=== PATIENT | female | born 1995 | race Hispanic/Latino ===

== ENCOUNTER 2017-09-15 15:41 | Inpatient (IN) | payer BC ==
[2017-09-15] MEDS ORDERED: Iopamidol 370 76% 50 ML VIAL FS ONE (16:02)
[2017-09-15] MEDS ORDERED: ISOVUE-370 76%-LOCM 1 ML ONE (16:03)
[2017-09-15 16:05] LABS: #Lymphocytes 1.1 thou/uL (1.20-3.40); #Monocytes 0.7 thou/uL (0.11-0.59); #Neutrophils 11.6 thou/uL (1.40-6.50); %Basophils 0.2 % (0.0-1.0); %Eosinophils 0.1 % (0.0-10.0); %Lymphocytes 8.2 % (21.0-51.0); %Monocytes 4.9 % (0.0-10.0); Hematocrit 39.7 % (36.0-47.0); Mean Platelet Volume 8.3 fL (7.4-10.4); Red Blood Cell (RBC) Count 4.43 mill/uL (4.20-5.40); White Blood Cell (WBC) Count 13.4 thou/uL (4.8-10.8)
[2017-09-15 16:26] LABS: ALT (SGPT) 63 U/L (8-55); AST (SGOT) 57 U/L (5-34); Alkaline Phosphatase 86 U/L (40-150); Anion Gap 20 mmol/L (10-20); BUN (Urea Nitrogen) 6 mg/dL (7.0-18.7); Bilirubin, Total 0.9 mg/dL (0.2-1.2); Calc. Creatinine Clearance 0 mL/min (70-130); Calcium 9.4 mg/dL (7.8-10.44); Carbon Dioxide 18 mmol/L (22-29); Chloride 100 mmol/L (98-107); Estimated GFR-MDRD Greater than 90; Globulin 4.8 g/dL (2.4-3.5); Protein, Total 8.7 g/dL (6.0-8.3)
[2017-09-15 16:41] LABS: Bilirubin Moderate (Negative); Blood, Urine Large (Negative); Glucose, Urine (Dipstick) Negative (Negative); Ketone, Urine 80 mg/dL (Negative); Nitrite Negative (Negative); Protein, Urine (Dipstick) 100 mg/dL (Neg-Trace)
[2017-09-15 16:45] LABS: Bacteria/HPF 1+ HPF (None Seen); Hyaline Casts/LPF 4-6 HYALINE CAST LPF (0-3 Hyaline); RBC/HPF GREATER THAN 50-TNTC HPF (0-3); WBC/HPF 21-50 HPF (0-3)
[2017-09-15] MEDS ORDERED: Acetaminophen 500 MG TAB ONE (16:45)
--- NOTE | 2017-09-15 17:39 | CT ---
CT OF THE ABDOMEN AND PELVIS WITH IV CONTRAST: 09/15/17 INDICATION: History of gastric sleeve procedure with abdominal pain. FINDINGS: There is fluid and gas seen traversing the proximal gastric sleeve suture site on image 16 of series 2 suspicious for suture dehiscence along this region. There is fluid and gas surrounding the spleen . There is a grade III laceration involving the superior aspect of the spleen measuring 4.5 cm witho ut evidence of active extravasation. Scattered free air is present within the upper abdomen. Slight lobulated appearance of the pancreatic tail is similar to a comparison in 2008. There is focal fatty infiltration of the liver near the falciform ligament which is similar to the comparison of 07/05/17 . The adrenal glands and kidneys are normal appearing. There is no percutaneously drainable fluid co llection noted. There is mild free fluid in the pelvis. The uterus, adnexa, rectum, and perirectal s oft tissues appear within normal limits. The bladder is largely decompressed. The osseous structures reveal no definite acute abnormality. IMPRESSION: 1. Findings most consistent with surgical suture line dehiscence along the proximal aspect of t he gastric sleeve site, near the region of the cardia. 2. Grade III laceration involving the superior pole of the spleen with adjacent fluid and gas a ccumulation likely from the gastric sleeve perforation site. 3. Scattered free air and free fluid within the upper abdomen. 4. Focal fatty infiltration of the liver. 5. Findings called to Dr. Trinidad 5:20 p.m. on 09/15/17. Code CR POS: [facility]
[2017-09-15] MEDS ORDERED: Ondansetron HCl/PF 8 MG in Sodium Chloride 0.9% 50 ML IVPB PRN (18:13)
[2017-09-15] MEDS ORDERED: Promethazine HCl 25 MG/ML VIAL IM/IV PRN (18:13)
[2017-09-15] MEDS ORDERED: Morphine 4 MG/ML Carpuject SLOW IVP PRN (18:13)
[2017-09-15] MEDS ORDERED: Sodium Chloride 0.9% 1,000 ML IV SCH (18:15)
[2017-09-15] MEDS ORDERED: Meropenem 1 GM, Admixture Fee 1 EACH in Sterile Water 20 ML SLOW IVP SCH (18:30)
[2017-09-15] MEDS ORDERED: Multivit, Adult Inj 10 ML VIAL IV SCH (18:30)
[2017-09-15] MEDS ORDERED: Multivitamins, Adult 10 ML in Sodium Chloride 0.9% 500 ML IV SCH ×2 (18:45)
[2017-09-15] MEDS ORDERED: Morphine 10 MG/ML VIAL SLOW IVP PRN ×3 (19:50→21:57)
[2017-09-15] MEDS: D5 1/2 NS w/20 mEq KCL 1,000 ML IV SCH (20:04)
[2017-09-15 20:28] VITALS: BMI 35.9
[2017-09-15] MEDS: Pantoprazole 40 MG VIAL IVP SCH (21:22)
[2017-09-15] MEDS: Morphine 10 MG/ML VIAL SLOW IVP PRN (22:05)
[2017-09-15] MEDS: Acetaminophen 1,000 MG in Premix Bag 1 BAG IVPB PRN (22:06)
--- NOTE | 2017-09-15 22:42 | HP ---
CHIEF COMPLAINT: Left upper quadrant, abdominal pain, and shoulder pain. HISTORY OF PRESENT ILLNESS: A 22-year-old female who underwent a sleeve gastrectomy on 07/01. She says she was doing fine until yesterday when she first developed a headache, then acute left shoulde r pain and dyspnea, no vomiting, some nausea. She has had reflux. She also reported that she began drinking alcohol again. PAST MEDICAL HISTORY: Significant for polycystic ovary and a history of diabetes. PAST SURGICAL HISTORY: Sleeve gastrectomy. MEDICATIONS: Vyvanse. ALLERGIES: No known drug allergies. SOCIAL HISTORY: She is single. No tobacco, occasional alcohol. FAMILY HISTORY: Noncontributory. PHYSICAL EXAMINATION: VITAL SIGNS: Temperature 99.9, pulse 102, blood pressure 125/82. GENERAL: She is awake, lying still, in minimal distress. HEENT: Unremarkable. LUNGS: Clear. HEART: Regular rate and rhythm. ABDOMEN: Tender in the epigastrium and left upper quadrant. There are rare bowel sounds. EXTREMITIES: Unremarkable. LABORATORY AND X-RAY FINDINGS: Her white count is 13.4, H\T\H 13 and 39, platelet count 228. Elect rolytes are fine, but her CO2 is low at 18, glucose is 117, creatinine 0.69. She had a CT scan show ing a very minimal fluid collection with some small amounts of free air in the left upper quadrant c onsistent with a staple line disruption. ASSESSMENT: Staple line leak. PLAN: Admit, IV antibiotics, proton pump inhibitors, n.p.o.
[2017-09-16] MEDS: Morphine 10 MG/ML VIAL SLOW IVP PRN ×2 (01:59→04:23)
[2017-09-16] MEDS: Meropenem 2 GM, Admixture Fee 1 EACH in Sodium Chloride 0.9% 100 ML IVPB SCH ×3 (01:59→18:07)
[2017-09-16] MEDS: Acetaminophen 1,000 MG in Premix Bag 1 BAG IVPB PRN (04:24)
[2017-09-16] MEDS: D5 1/2 NS w/20 mEq KCL 1,000 ML IV SCH ×3 (07:41→18:45)
[2017-09-16] MEDS ORDERED: Midazolam HCl 2 mg/2 ml Vial ONE ×2 (09:04)
[2017-09-16] MEDS ORDERED: Scopolamine 1.5 mg/72 hour Patch ONE (09:04)
[2017-09-16] MEDS ORDERED: Fentanyl 100 MCG/2 ML VIAL ONE (09:04)
[2017-09-16] MEDS ORDERED: Morphine 4 MG/ML Carpuject ONE (09:04)
[2017-09-16] MEDS ORDERED: Bupivacaine 0.25% HCL 30 ML VIAL ONE (09:07)
[2017-09-16] MEDS ORDERED: Lidocaine 1% w/Epinephrine 1:200K 30 ML VIAL ONE (09:07)
[2017-09-16] MEDS ORDERED: Glycopyrrolate 0.2 MG/ML 5 ML SYRINGE ONE (09:30)
[2017-09-16] MEDS ORDERED: Dexamethasone 20 MG/5 ML VIAL ONE (09:30)
[2017-09-16] MEDS ORDERED: Lidocaine 1% PF 5 ML VIAL ONE (09:30)
[2017-09-16] MEDS ORDERED: Ketorolac Tromethamine 30 MG/ML VIAL ONE (09:30)
[2017-09-16] MEDS ORDERED: Ondansetron HCl/PF 4 MG/2 ML Vial ONE (09:30)
[2017-09-16] MEDS ORDERED: Propofol 200 MG/20 ML VIAL ONE (09:30)
[2017-09-16] MEDS ORDERED: Promethazine HCl 25 MG/ML VIAL SLOW IVP PRN (10:33)
[2017-09-16] MEDS ORDERED: Promethazine HCl 25 MG/ML VIAL IM PRN ×3 (10:33→10:48)
[2017-09-16] MEDS ORDERED: Naloxone HCl 0.4 mg/ml Vial IV PRN (10:33)
[2017-09-16] MEDS ORDERED: HYDROmorphone 2 MG/ML VIAL SLOW IVP PRN (10:33)
[2017-09-16] MEDS ORDERED: Zolpidem Tartrate 5 MG TAB PO PRN (10:33)
[2017-09-16] MEDS ORDERED: diphenhydrAMINE 50 MG/ML VIAL IM PRN (10:33)
[2017-09-16] MEDS ORDERED: Ondansetron HCl/PF 4 MG/2 ML Vial IVP PRN ×3 (10:33→10:48)
[2017-09-16] MEDS ORDERED: diphenhydrAMINE 25 MG CAP PO PRN (10:33)
[2017-09-16] MEDS ORDERED: HYDROmorphone 10 mg/100 ml CADD IVPB PRN (10:33)
[2017-09-16] MEDS ORDERED: Communication Order-Pharmacy FS SCH (10:45)
[2017-09-16] MEDS ORDERED: diphenhydrAMINE 50 MG/ML VIAL IVP PRN (10:48)
[2017-09-16] MEDS ORDERED: Dextrose 5% in Water 1,000 ML IV PRN (10:48)
[2017-09-16] MEDS ORDERED: hydrALAZINE 20 MG/ML VIAL SLOW IVP PRN (10:48)
[2017-09-16] MEDS ORDERED: Dextrose 50% Abboject 50 ML SYRINGE SLOW IVP PRN (10:48)
[2017-09-16] MEDS ORDERED: D5 1/2 NS w/20 mEq KCL 1,000 ML ONE (11:11)
[2017-09-16] MEDS ORDERED: Ketorolac Tromethamine 30 MG/ML VIAL IVP SCH (12:00)
[2017-09-16] MEDS ORDERED: Acetaminophen 1,000 MG in Premix Bag 1 BAG IVPB SCH (12:00)
[2017-09-16] MEDS ORDERED: HYDROmorphone HCl/PF 0.1 MG/ML 100 ML ONE (12:10)
--- NOTE | 2017-09-16 13:14 | OP ---
PREOPERATIVE DIAGNOSIS: Left upper quadrant abscess with possible gastric perforation. SURGEON: Eric Tena M.D. PROCEDURES PERFORMED: Diagnostic laparoscopy, laparoscopic drainage of left upper quadrant, perispl enic abscess, EGD with methylene blue. INDICATIONS: Patient is a 22-year-old female 3 months status post sleeve, who yesterday started hav ing left upper quadrant abdominal pain and shoulder pain. She came to the emergency room where a CT scan showed an abscess in the left upper quadrant with some air pockets that they thought was leak from previous staple line. FINDINGS: I could not demonstrate a leak. I used air insufflation as well as methylene blue. She did have an abscess cavity of about 50 mL of purulent fluid that was drained, but there was no color change to it from the methylene blue. This was sent for culture. PROCEDURE IN DETAIL: After informed consent was obtained, the patient was taken to the operating ro om and given general endotracheal anesthesia, placed in the supine position. Her abdomen was preppe d and draped in the usual fashion. Local anesthesia infiltrated subcutaneously and deep. A 5 mm in cision was performed approximately 8 inches below the xiphoid slightly to the left. Veress needle i nserted. Drop test performed. Pneumoperitoneum was created to a volume of 2 liters of carbon dioxi de. Utilizing a bladeless 5 mm trocar and 0 degree laparoscope, direct visual entry into the abdomi nal cavity was performed. The patient was placed in steep reverse Trendelenburg position. Nathanse n liver retractor inserted. Left lobe of liver retracted superiorly. There were minimal adhesions in the area. There was no obvious purulent fluid, so just up there at the EG junction, there was mo re inflammation and another placed, so gently blunt dissection was performed and there was a little bit of free fluid. This was sent for culture. Then eventually so at this point, I went ahead and d id an EGD. The scope was advanced transorally utilizing direct vision and under air insufflation in to the stomach and then brought back right at the EG junction and then inflated. There were no bubb les anywhere seen. Then, I took 50 mL or 45 mL of fluid and 5 mL of methylene blue and inserted thr ough the channel on the scope right at the EG junction, then went back down and I did not see any bl ue color extravasated. So when I started to put a drain in and I was leaving it along the left gutt er when I started seeing purulent fluid. This was then aspirated for culture and an abscess cavity was encountered just lateral to the spleen. There was absolutely no methylene blue within it. This was thoroughly irrigated with saline. The drain placed along that gutter and placed into the absce ss cavity, brought out through the left-sided port site. Hemostasis was assured. Trocars and retra ctors removed. The abdomen decompressed. The skin closed with interrupted 4-0 Rapide. Dermabond a pplied. The patient tolerated the procedure well and transferred to recovery in good condition.
[2017-09-16] MEDS: Pantoprazole 40 MG VIAL IVP SCH (13:34)
[2017-09-16] MEDS: diphenhydrAMINE 50 MG/ML VIAL IVP PRN ×3 (16:58→23:52)
[2017-09-16] MEDS: Acetaminophen 1,000 MG in Premix Bag 1 BAG IVPB SCH ×2 (17:01→21:30)
[2017-09-16] MEDS: Ketorolac Tromethamine 30 MG/ML VIAL IVP SCH (18:47)
[2017-09-16] MEDS ORDERED: Docusate 100 MG CAP PO SCH (21:00)
[2017-09-17] MEDS: Meropenem 2 GM, Admixture Fee 1 EACH in Sodium Chloride 0.9% 100 ML IVPB SCH ×3 (02:41→18:54)
[2017-09-17] MEDS: D5 1/2 NS w/20 mEq KCL 1,000 ML IV SCH ×3 (02:43→17:53)
[2017-09-17] MEDS: Acetaminophen 1,000 MG in Premix Bag 1 BAG IVPB SCH ×3 (03:53→17:24)
[2017-09-17 04:40] LABS: #Lymphocytes 1.7 thou/uL (1.20-3.40); #Monocytes 1.1 thou/uL (0.11-0.59); #Neutrophils 9.9 thou/uL (1.40-6.50); %Basophils 0.1 % (0.0-1.0); %Eosinophils 0.2 % (0.0-10.0); %Lymphocytes 13.5 % (21.0-51.0); %Monocytes 8.5 % (0.0-10.0); Hematocrit 34.6 % (36.0-47.0); Mean Platelet Volume 8.4 fL (7.4-10.4); Red Blood Cell (RBC) Count 3.77 mill/uL (4.20-5.40); White Blood Cell (WBC) Count 12.7 thou/uL (4.8-10.8)
[2017-09-17 04:53] LABS: Anion Gap 13 mmol/L (10-20); BUN (Urea Nitrogen) 6 mg/dL (7.0-18.7); Calc. Creatinine Clearance 244 mL/min (70-130); Calcium 8.4 mg/dL (7.8-10.44); Carbon Dioxide 21 mmol/L (22-29); Chloride 106 mmol/L (98-107); Estimated GFR-MDRD Greater than 90
[2017-09-17] MEDS: Ketorolac Tromethamine 30 MG/ML VIAL IVP SCH ×4 (06:10→18:54)
[2017-09-17] MEDS: diphenhydrAMINE 50 MG/ML VIAL IVP PRN ×4 (06:14→22:30)
[2017-09-17] MEDS: Enoxaparin Sodium 40 MG/0.4 ML SYRINGE SC SCH (09:12)
[2017-09-17] MEDS: Pantoprazole 40 MG VIAL IVP SCH (09:12)
--- NOTE | 2017-09-17 11:09 | RAD ---
LIMITED UPPER GI: 09/17/2017 FLUOROSCOPY: Total fluoroscopy time is 0.7 minutes with a total dose of 19.83 Gy cm2. HISTORY: Post bariatric surgery, gastric sleeve procedure. The patient had a left upper quadrant abdominal f luid collection and subsequent CT scan demonstrating gas adjacent to the post surgical changes, sugg esting the possibility of a leak. This examination is for re-evaluation of post surgical change. FINDINGS: Approximately 15 mL of Gastrografin was administered orally. Contrast traverses the GE junction sharmila ailyn and without holdup and extends promptly into the small bowel. However, there is a focal area of extravasation seen near and probably just distal to the level of the GE junction and to the left of this region and into the left upper quadrant. Contrast does extend into the small bowel. Multiple surgical clips overly the left upper quadrant, and there is also a drainage catheter overly ing the left upper quadrant. IMPRESSION: 1. Post surgical changes related to gastric sleeve procedure. There is evidence of extravasation o f contrast secondary to a leak, to the left of the gastroesophageal junction, and is probably either in the region of the proximal stomach or at the level of the gastroesophageal junction. 2. Contrast traverses the gastroesophageal junction and extends into the small bowel, promptly. 3. The above findings, concerning leak, were discussed with Dr. Tena. CODE CR POS: [facility]
[2017-09-17] MEDS ORDERED: Heparin 1,000 UNITS/ML VIAL ONE (11:11)
--- NOTE | 2017-09-17 11:49 | DIS ---
DISCHARGE DIAGNOSIS: Intra-abdominal abscess left upper quadrant, gastric staple line leak. PROCEDURES DURING ADMISSION: CT scan laparoscopic drainage of abdominal abscess, EGD, postoperative Gastrografin swallow. HOSPITAL COURSE: The patient was admitted. CT scan showed an abscess. She was given IV antibiotic s. She was taken to the operating room where she underwent laparoscopic drainage of the abscess, in traoperatively could not demonstrate a leak; however, on the postoperative Gastrografin swallow, the re was a leak. She is now being transferred to [facility] in [place] with Dr. Bianca bailey in order to place a stent to block this leak. She will be transferred by ambulance.
--- NOTE | 2017-09-17 16:04 | EKG ---
Test Reason : TACHYCARDIA Blood Pressure : / mmHG Vent. Rate : 114 BPM Atrial Rate : 114 BPM P-R Int : 134 ms QRS Dur : 074 ms QT Int : 290 ms P-R-T Axes : 040 030 029 degrees QTc Int : 399 ms Sinus tachycardia Otherwise normal ECG When compared with ECG of 21-JUN-2017 17:24, No significant change was found Confirmed by DR. Palak CELAYA ([id number]) on 09/17/2017 4:03:52 PM Referred By: SHASHANK Confirmed By:DR. Palak CELAYA
--- NOTE | 2017-09-17 18:16 | SPC ---
ULTRASOUND GUIDED LEFT UPPER EXTREMITY PICC LINE PLACEMENT 09/17/17 HISTORY: Patient post gastric sleeve procedure with gastric leak and infection. FLUOROSCOPY: Total fluoroscopy time 0.3 minutes. Total dose of 2364 mGy*cm2. TECHNIQUE: After informed consent was obtained, the patient was placed on an angiography table in the supine po sition. Left upper extremity was meticulously prepped and draped in the usual sterile fashion. An ap propriate access site was determined with ultrasound guidance. The left basilic vein is accessed utilizing micropuncture technique and concurrent real time ultraso und guidance. 5 Lebanese peel away sheath was placed. The catheter was measured and cut to the appropr iate length. Catheter was placed over the guide wire with the tip positioned overlying the cavoatria l junction. Guide wire and peel away sheath were removed. Each port on the double lumen PICC line was accessed and aspirated/flushed easily. The catheter was secured to the skin utilizing StatLock device. A dry sterile dressing was placed. The patient tolerated the procedure well without immediate complication. FINDINGS: Technically successful placement of a single lumen 5 Lebanese 40 cm PICC line via the left basilic vei n. Tip of the catheter overlies the cavoatrial junction. IMPRESSION: Technically successful left upper extremity PICC line placement. POS: [facility]
[2017-09-18] MEDS: Meropenem 2 GM, Admixture Fee 1 EACH in Sodium Chloride 0.9% 100 ML IVPB SCH ×3 (01:16→18:21)
[2017-09-18] MEDS: D5 1/2 NS w/20 mEq KCL 1,000 ML IV SCH ×3 (01:16→21:30)
[2017-09-18] MEDS: Ketorolac Tromethamine 30 MG/ML VIAL IVP SCH ×4 (01:17→18:22)
[2017-09-18] MEDS: Enoxaparin Sodium 40 MG/0.4 ML SYRINGE SC SCH (09:40)
[2017-09-18] MEDS: Pantoprazole 40 MG VIAL IVP SCH (09:40)
[2017-09-18] MEDS: diphenhydrAMINE 50 MG/ML VIAL IVP PRN ×2 (14:58→21:29)
[2017-09-18] MEDS ORDERED: MULTITRACE IV SCH ×10 (22:00)
[2017-09-18] MEDS ORDERED: MULTIVITAMINS IV SCH ×10 (22:00)
[2017-09-18] MEDS ORDERED: [UNRECOGNIZED DRUG - OTHER] IV SCH ×10 (22:00)
[2017-09-18] MEDS ORDERED: FAT EMULSION IV SCH ×10 (22:00)
[2017-09-19] MEDS: Meropenem 2 GM, Admixture Fee 1 EACH in Sodium Chloride 0.9% 100 ML IVPB SCH ×2 (02:48→08:30)
[2017-09-19] MEDS: diphenhydrAMINE 50 MG/ML VIAL IVP PRN ×2 (02:49→10:56)
[2017-09-19] MEDS: D5 1/2 NS w/20 mEq KCL 1,000 ML IV SCH ×2 (02:49→10:59)
[2017-09-19 04:36] LABS: Prothrombin Time 14.5 SEC (12.0-14.7)
[2017-09-19 04:41] LABS: ALT (SGPT) 52 U/L (8-55); AST (SGOT) 30 U/L (5-34); Alkaline Phosphatase 139 U/L (40-150); Anion Gap 12 mmol/L (10-20); BUN (Urea Nitrogen) Less than 4 mg/dL (7.0-18.7); Bilirubin, Total 0.5 mg/dL (0.2-1.2); Calc. Creatinine Clearance 239 mL/min (70-130); Calcium 8.9 mg/dL (7.8-10.44); Carbon Dioxide 26 mmol/L (22-29); Chloride 105 mmol/L (98-107); Cholesterol 90 mg/dl (< 200 Desired); Estimated GFR-MDRD Greater than 90; Globulin 3.6 g/dL (2.4-3.5); LDL Cholesterol, Calculated 47 mg/dL; Magnesium 1.7 mg/dL (1.6-2.6); Phosphorus 2.8 mg/dL (2.3-4.7); Protein, Total 6.6 g/dL (6.0-8.3)
[2017-09-19] MEDS: Pantoprazole 40 MG VIAL IVP SCH (08:26)
[2017-09-19] MEDS: Enoxaparin Sodium 40 MG/0.4 ML SYRINGE SC SCH (08:27)
[2017-09-19 12:13] VITALS: BP 117/81; TEMP 99.6
[2017-09-19] MEDS ORDERED: Morphine PF 1 MG/ML SYR IV PRN (12:21)
[2017-09-19] MEDS ORDERED: MORPHINE 10 MG/ML SYRINGE IV PRN (12:22)
== END 2017-09-19 15:31 | disposition short-term general hospital (02) | DRG 862 ==
LOC: ERS 15:41 → SURG A 19:40
PROVIDERS: ADMIT Surgery; ATTEND Surgery
PROC: 0DJ08ZZ Inspection of Upper Intestinal Tract, Via Natural or Artificial Opening Endoscopic (ICD-10-PCS; principal; 2017-09-16)
PROC: 0W9G40Z Drainage of Peritoneal Cavity with Drainage Device, Percutaneous Endoscopic Approach (ICD-10-PCS; 2017-09-16)
PROC: 02HV33Z Insertion of Infusion Device into Superior Vena Cava, Percutaneous Approach (ICD-10-PCS; 2017-09-17)
PROC: B548ZZA Ultrasonography of Superior Vena Cava, Guidance (ICD-10-PCS; 2017-09-17)
DX: T81.4XXA Infection following a procedure, initial encounter (principal); K65.1 Peritoneal abscess; K95.89 Other complications of other bariatric procedure; E11.9 Type 2 diabetes mellitus without complications; Z98.84 Bariatric surgery status; E28.2 Polycystic ovarian syndrome
CPT/HCPCS: 36415; 36416; 36569; 74177; 74241; 80048; 80053; 80061; 81003; 81015; 81025; 83735; 84100; 84134; 85025; 85610; 85730; 87040; 87070; 87077; 87116; 87205; 87206; 93005; 93010; 94760; 96361; 96374; 96375; A4216; C1751; C9113; J0131; J1100; J1170; J1200; J1644; J1650; J1885; J2001; J2185; J2250; J2270; J2405; J2704; J3010; J7050; Q9968; S0020

== ENCOUNTER 2017-09-27 12:42 | Inpatient (IN) | payer BC ==
--- OUTSIDE RECORDS SUMMARY | 2017-09-27 19:16 | XMS | Clinical Summary ---
:1995 Author Organization [facility] Address [address] [place] [address] Phone Care Team Providers Name Role Phone , Primary Care Provider Unavailable Allergies Active Allergy Reactions Severity Noted Date Comments Sulfa (Sulfonamide Antibiotics) Hives 09/19/20172015 Current Medications Prescription Sig. Disp. Refills Start End Date Status Date Continue current Per Parenteral 1 each 0 Active parenteral nutrition 7 nutrition IV formulation. infusion ampicillin-sulbac Inject 3 g 0 Active barth (UNASYN) MBP intravenously 7 3 g in 100 mL NS every 6 (six) hours. bisacodyl Place 1 12 suppository 0 10/07/20 Active (DULCOLAX) 10 mg suppository (10 mg 7 17 suppository total) rectally daily as needed for up to 10 days. dextrose 10% USE PRN. Active (D10W) infusion 7 enoxaparin Inject 0.4 mLs (40 0 Active (LOVENOX) 40 mg total) 7 mg/0.4 mL Syrg subcutaneously daily. HYDROmorphone Inject 1 mL (1 mg 1 mL 0 Active (DILAUDID) total) 7 injection 1 mg/mL intravenously every 4 (four) hours as needed. Max Daily Amount: 6 mg ondansetron Inject 2 mLs (4 mg Active (ZOFRAN) 4 mg/2 total) 7 mL injection intravenously every 6 (six) hours as needed. pantoprazole Inject 40 mg Active (PROTONIX) intravenously 7 injection 40 mg daily. promethazine Inject 1 mL (25 mg Active (PHENERGAN) 25 total) 7 mg/mL injection intravenously every 6 (six) hours as needed. sodium chloride Inject 5 mLs Active 0.9%, NS, 0.9 % intravenously as 7 injection needed. sodium chloride Inject 5 mLs Active 0.9%, NS, 0.9 % intravenously 7 injection every 8 (eight) hours. sodium chloride Inject 5 mLs Active 0.9%, NS, 0.9 % intravenously as 7 injection needed. sodium chloride Inject 5 mLs Active 0.9%, NS, 0.9 % intravenously 7 injection every 8 (eight) hours. pediatric Take 1 tablet by 09/27/20 Suspended multivitamin mouth 2 (two) 17 chewable times daily tabletIndications Bariatric :Vitamin multivitamin, Deficiency chewable. . Prevention CALCIUM Take 1,000 mg by 09/27/20 Suspended CARB/VITAMIN mouth daily 17 D3/VIT K1 Caltrate, caramel (CALCIUM SOFT calcium chewables. CHEW ORAL) . Active Problems Problem Noted Date Mild protein-calorie malnutrition (HCC) 09/27/2017 Abdominal abscess (HCC) 09/27/2017 Gastric anastomotic leak 09/19/2017 Encounters Date Type Specialty Care Team Description 09/21/2017 Orders Only General Internal Medicine 09/20/2017 Anesthesia Event Gastroenterology Moises Davila CRNA 09/20/2017 Procedure Pass Gastroenterology 09/20/2017 Surgery Gastroenterology Bianca Guzman PROCEDURE W/ C-JOSE Gibbs MD 09/19/2017 - Hospital Encounter Cardiology Maldonado Still Gastric 09/27/2017 MD [place] anastomotic leak Ethel Verdugo MD Giveon, Ron, MD from Last 3 Months Family History Medical History Relation Name Comments Diabetes Maternal Grandfather Hypertension Maternal Grandfather Relation Name Status Comments Maternal Grandfather Social History Tobacco Use Types Packs/Day Years Used Date Never Smoker Smokeless Tobacco: Never Used Tobacco Cessation:Counseling Given: No Alcohol Use Drinks/Week oz/Week Comments Yes 1 Glasses of wine 0.6 less than one per week. Sex Assigned at Date Recorded Not on file Last Filed Vital Signs Vital Sign Reading Time Taken Blood Pressure 125/84 09/27/2017 7:00 AM CREDIT REPORTING CLERK Pulse 98 09/27/2017 3:56 PM CREDIT REPORTING CLERK Temperature 36.6 C (97.8 F) 09/27/2017 7:00 AM CREDIT REPORTING CLERK Respiratory Rate 18 09/27/2017 3:56 PM CREDIT REPORTING CLERK Oxygen Saturation 96% 09/27/2017 3:56 PM CREDIT REPORTING CLERK Inhaled Oxygen Concentration - - Weight 89 kg (196 lb 4.8 oz) 09/27/2017 8:00 AM CREDIT REPORTING CLERK Height 160 cm (5' 3") 09/19/2017 5:44 PM CREDIT REPORTING CLERK Body Mass Index 34.77 09/27/2017 8:00 AM CREDIT REPORTING CLERK Plan of Treatment Health Maintenance Due Date Last Done Comments INFLUENZA VACCINE 08/15/2017 Implants Implanted Type Area Structural Metal Fabricator Apprentice Device Expiration Model / Identifier Date Serial / Lot Stent Esoph Wallfelx [id number] - [id number] Stents-P N/A: [employer]: ENDO 02/10/2019 1675 / Implanted:Qty: 1 on 09/20/2017 by Bianca Guzman MD eriphera Esophagus / l [id number] Procedures Procedure Name Priority Date/Time Associated Diagnosis Comments UPPER ENDOSCOPY,WALL 09/20/2017 5:10 PM CREDIT REPORTING CLERK ESOPHAGEAL LEAK STENT Special Needs EGD WITH STENT PLACEMENT WITH ANES AND FLUORO PROCEDURE W/ C-ARM 09/20/2017 5:10 PM CREDIT REPORTING CLERK ESOPHAGEAL LEAK Special Needs EGD WITH STENT PLACEMENT WITH ANES AND FLUORO from Last [address] abdomen with IV contrast (09/27/2017 12:59 PM) Specimen Performing Laboratory GE RIS Narrative FINAL REPORT HISTORY : Pt with GE junction leak/perisplenic abscess - wish to evaluate resolution of abscess. Please give oral contrast Technique: Multiple axial CT images of the abdomen were obtained with the administration of IV and oral contrast. This exam was performed according to our departmental dose optimization program which includes automated exposure control, adjustment of the mA and/or kV according to patient size and/or use of iterative reconstructive technique. COMPARISON : None COMMENT : There is a small left-sided pleural effusion with some adjacent consolidation likely representing atelectasis. An esophageal stent is in place. There is a linear collection of air identified lateral to the stent at the level of the gastroesophageal junction with additional foci of air in the left perisplenic region. There are several fluid and air fluid collections identified in the perisplenic region. The largest measures up to 3.7 x 2.3 cm. Some of air/fluid collections are seen within the splenic parenchyma and appear to be communicating with the air tract. The gallbladder is contracted. There is suspected cholelithiasis. The findings can be confirmed with an MRI, liver mass protocol. The visualized spleen, adrenal glands, kidneys, pancreas, stomach and duodenum are within normal limits. Within the left hepatic lobe, along the falciform ligament, there is a hypodense area identified measuring up to 2.4 x 0.9 cm. More likely, this represents some focal fatty infiltration around the gallbladder. There is no abdominal or retroperitoneal lymphadenopathy. The osseous structures as well as the subcutaneous soft tissues are without any abnormalities. No findings of any bowel obstruction. The visualized portions of the large and small bowel are within normal limits. The visualized portions of the appendix are within normal limits. Impression: 1. Esophageal stent in place. There is a linear air-filled tract extending left lateral to the gastroesophageal junction outside the confines of the stent. This may be secondary to an esophageal leak. 2. Several splenic/perisplenic fluid and air fluid collections concerning for abscesses. There is questionable communicating tract between some of these collections and the previously described tract along the gastroesophageal junction. Signed: Kevin Aguirre MD Report Verified Date/Time:09/27/2017 15:08:11 Reading Location: [facility] C013Y CT Body Reading Room Procedure Note Interface, External Ris In - 09/27/2017 3:10 PM CREDIT REPORTING CLERK FINAL REPORT HISTORY : Pt with GE junction leak/perisplenic abscess - wish to evaluate resolution of abscess. Please give oral contrast Technique: Multiple axial CT images of the abdomen were obtained with the administration of IV and oral contrast. This exam was performed according to our departmental dose optimization program which includes automated exposure control, adjustment of the mA and/or kV according to patient size and/or use of iterative reconstructive technique. COMPARISON : None COMMENT : There is a small left-sided pleural effusion with some adjacent consolidation likely representing atelectasis. An esophageal stent is in place. There is a linear collection of air identified lateral to the stent at the level of the gastroesophageal junction with additional foci of air in the left perisplenic region. There are several fluid and air fluid collections identified in the perisplenic region. The largest measures up to 3.7 x 2.3 cm. Some of air/fluid collections are seen within the splenic parenchyma and appear to be communicating with the air tract. The gallbladder is contracted. There is suspected cholelithiasis. The findings can be confirmed with an MRI, liver mass protocol. The visualized spleen, adrenal glands, kidneys, pancreas, stomach and duodenum are within normal limits. Within the left hepatic lobe, along the falciform ligament, there is a hypodense area identified measuring up to 2.4 x 0.9 cm. More likely, this represents some focal fatty infiltration around the gallbladder. There is no abdominal or retroperitoneal lymphadenopathy. The osseous structures as well as the subcutaneous soft tissues are without any abnormalities. No findings of any bowel obstruction. The visualized portions of the large and small bowel are within normal limits. The visualized portions of the appendix are within normal limits. Impression: 1. Esophageal stent in place. There is a linear air-filled tract extending left lateral to the gastroesophageal junction outside the confines of the stent. This may be secondary to an esophageal leak. 2. Several splenic/perisplenic fluid and air fluid collections concerning for abscesses. There is questionable communicating tract between some of these collections and the previously described tract along the gastroesophageal junction. Signed: Kevin Aguirre MD Report Verified Date/Time: 09/27/2017 15:08:11 Reading Location: [facility] C013Y CT Body Reading Room with platelet count + automated diff (09/27/2017 5:09 AM)Only the most recent of9 resultswithin the time period is included. Component Value Ref Range WBC 11.9(H) 3.5 - 10.5 K/L RBC 3.88(L) 3.93 - 5.22 M/L Hemoglobin 10.8(L) 11.2 - 15.7 GM/DL Hematocrit 34.1 34.1 - 44.9 % MCV 87.9 79.4 - 94.8 fL MCH 27.8 25.6 - 32.2 pg MCHC 31.7(L) 32.2 - 35.5 GM/DL RDW 14.6(H) 11.7 - 14.4 % Platelets 524(H) 150 - 450 K/CU MM MPV 9.3(L) 9.4 - 12.3 fL nRBC 0 0 - 0 /100 WBC % Neutros 68 % % Lymphs 22 % % Monos 9 % % Eos 1 % % Baso 0 % # Neutros 8.06(H) 1.56 - 6.13 K/L # Lymphs 2.60 1.18 - 3.74 K/L # Monos 1.01(H) 0.24 - 0.36 K/L # Eos 0.14 0.04 - 0.36 K/L # Baso 0.05 0.01 - 0.08 K/L Immature Granulocytes-Relative 1 0 - 1 % Specimen Performing Laboratory Blood - Arm, [address] [address] CBC with platelet count + automated diff (09/27/2017 5:09 AM)Only the most recent of9 resultswithin the time period is included. Specimen Performing Laboratory Blood Narrative The following orders were created for panel order CBC with platelet count + automated diff. Procedure Abnormality Status --------- ------ CBC with platelet count ...[[id number]]AbnormalFinal result Please view results for these tests on the individual orders. Phosphorus (09/27/2017 5:09 AM)Only the most recent of7 resultswithin the time period is included. Component Value Ref Range Phosphorus 4.2 2.3 - 4.7 mg/dL Specimen Performing Laboratory Blood - Arm, [address] [address] Magnesium (09/27/2017 5:09 AM)Only the most recent of9 resultswithin the time period is included. Component Value Ref Range Magnesium 1.9 1.6 - 2.6 mg/dL Specimen Performing Laboratory Blood - Arm, [address] [address] Basic Metabolic Panel (09/27/2017 5:09 AM)Only the most recent of8 resultswithin the time period is included. Component Value Ref Range Sodium 136 136 - 145 meq/L Potassium 4.3 3.5 - 5.1 meq/L Chloride 102 98 - 107 meq/L CO2 26 22 - 29 meq/L BUN 14 7 - 21 mg/dL Creatinine 0.63 0.57 - 1.25 mg/dL Glucose 97 70 - 105 mg/dL Calcium 9.3 8.4 - 10.2 mg/dL EGFR 119Comment:ESTIMATED GFR IS NOT ACCURATE mL/min/1.73 sq m CREATININE CLEARANCE IN PREDICTING GLOMERULAR FILTRATION RATE. ESTIMATED GFR IS NOT APPLICABLE FOR DIALYSIS PATIENTS. Specimen Performing Laboratory Blood - Arm, Right [facility] [address] [place] [address], [place] [address] XR abdomen 2 views flat and upright (09/26/2017 5:16 PM) Specimen Performing Laboratory GE RIS Narrative FINAL REPORT ABDOMEN 2 VIEWS HISTORY: Vomiting COMPARISON: Upper GI examination of 09/23/2017 FINDINGS: Supine and erect AP radiographs of the abdomen were obtained. An esophageal stent is noted in the region of the distal esophagus and proximal stomach. This is unchanged in appearance. There is mild subsegmental atelectasis at the left lung base. There are a few gas-filled loops of bowel in the central abdomen and left abdomen, some which are at the upper limits of normal in caliber, demonstrating air-fluid levels. There is no specific radiographic evidence of mechanical bowel obstruction. No free intraperitoneal air is identified. There are surgical clips in the left upper quadrant of the abdomen. Signed: Maddy Gaines MD Report Verified Date/Time:09/26/2017 17:23:11 Reading Location: [facility] C013 Ortho Consult Reading Room Procedure Note Interface, External Ris In - 09/26/2017 5:25 PM CREDIT REPORTING CLERK FINAL REPORT ABDOMEN 2 VIEWS HISTORY: Vomiting COMPARISON: Upper GI examination of 09/23/2017 FINDINGS: Supine and erect AP radiographs of the abdomen were obtained. An esophageal stent is noted in the region of the distal esophagus and proximal stomach. This is unchanged in appearance. There is mild subsegmental atelectasis at the left lung base. There are a few gas-filled loops of bowel in the central abdomen and left abdomen, some which are at the upper limits of normal in caliber, demonstrating air-fluid levels. There is no specific radiographic evidence of mechanical bowel obstruction. No free intraperitoneal air is identified. There are surgical clips in the left upper quadrant of the abdomen. Signed: Maddy Gaines MD Report Verified Date/Time: 09/26/2017 17:23:11 Reading Location: [facility] C013X Ortho Consult Reading Room upper GI (09/23/2017 10:56 AM) Specimen Performing Laboratory GE RIS Narrative FINAL REPORT INDICATION: 22-year-old female status post esophageal stent placement two days ago. Patient had gastric sleeve procedure in November 2016. COMPARISON: None. TECHNIQUE: Fluoroscopic upper GI exam single contrast (Gastrografin). Fluoroscopy time 2.5 minutes. Acquired fluoroscopic images 10. FINDINGS: Color Artist radiograph demonstrates a 20 cm long metallic stent in the lower esophagus crossing the GE junction. Because of nausea the patient was able to only tolerate 20 cc of Gastrografin. Contrast held up at the proximal end of the stent for approximately 10 seconds, then passed slowly through the stent. Most of the contrast passed into the gastric sleeve and duodenum, though a small amount of contrast passed between the stent and the esophageal wall with some contrast pooling outside of the lumen in the left upper quadrant (fluoroscopic image 8). IMPRESSION: Status post esophageal stent placement with small persistent leak into the left upper quadrant. Signed: Drew Khan MD Report Verified Date/Time:09/23/2017 13:48:08 Reading Location: [address] Consult Reading Room Procedure Note Interface, External Ris In - 09/23/2017 1:50 PM CREDIT REPORTING CLERK FINAL REPORT INDICATION: 22-year-old female status post esophageal stent placement two days ago. Patient had gastric sleeve procedure in November 2016. COMPARISON: None. TECHNIQUE: Fluoroscopic upper GI exam single contrast (Gastrografin). Fluoroscopy time 2.5 minutes. Acquired fluoroscopic images 10. FINDINGS: Color Artist radiograph demonstrates a 20 cm long metallic stent in the lower esophagus crossing the GE junction. Because of nausea the patient was able to only tolerate 20 cc of Gastrografin. Contrast held up at the proximal end of the stent for approximately 10 seconds, then passed slowly through the stent. Most of the contrast passed into the gastric sleeve and duodenum, though a small amount of contrast passed between the stent and the esophageal wall with some contrast pooling outside of the lumen in the left upper quadrant (fluoroscopic image 8). IMPRESSION: Status post esophageal stent placement with small persistent leak into the left upper quadrant. Signed: Drew Khan MD Report Verified Date/Time: 09/23/2017 13:48:08 Reading Location: [facility] C013X Ortho Consult Reading Room 01:48 PM XR chest 1 view portable / bedside (09/21/2017 10:27 AM) Specimen Performing Laboratory GE RIS Narrative FINAL REPORT Portable chest CLINICAL HISTORY: Nausea. COMPARISON STUDY:None available. FINDINGS:The cardiac silhouette is unremarkable. A small left-sided pleural effusion is seen with adjacent atelectasis or consolidation. There is a stent in the distal esophagus/proximal stomach. A left-sided PICC line is noted. No pneumothorax is seen. There is a left sided chest tube in place. Degenerative changes are noted. IMPRESSION: Small left-sided pleural effusion with adjacent atelectasis or consolidation. Other findings as described above. Signed: Slim Hernandez MD Report Verified Date/Time:09/21/2017 11:11:29 Reading Location: [facility] B1 C013Y CT Body Reading Room Procedure Note Interface, External Ris In - 09/21/2017 11:13 AM CREDIT REPORTING CLERK FINAL REPORT Portable chest CLINICAL HISTORY: Nausea. COMPARISON STUDY: None available. FINDINGS: The cardiac silhouette is unremarkable. A small left-sided pleural effusion is seen with adjacent atelectasis or consolidation. There is a stent in the distal esophagus/proximal stomach. A left-sided PICC line is noted. No pneumothorax is seen. There is a left sided chest tube in place. Degenerative changes are noted. IMPRESSION: Small left-sided pleural effusion with adjacent atelectasis or consolidation. Other findings as described above. Signed: Slim Hernandez MD Report Verified Date/Time: 09/21/2017 11:11:29 Reading Location: [facility] B1 C013Y CT Body Reading Room Troponin I (09/21/2017 9:54 AM) Component Value Ref Range Troponin I <0.01 0.00 - 0.03 ng/mL Specimen Performing Laboratory Blood - Central Venous Line [address] [address] Narrative Troponin I (TnI) levels must be interpreted in the context of the presenting symptoms and the clinical findings. Elevated TnI levels indicate myocardial damage, but are not specific for ischemic heartdisease. Elevated TnI levels are seen in patients with other cardiac conditions (including myocarditis and congestive heart failure), and slight TnI elevations occur in patients with other conditions, including sepsis , renal failure, acidosis, acute neurological disease, and persistent tachyarrhythmia. ECG 12 lead (09/21/2017 9:14 AM) Specimen Performing Laboratory GE MUSE Narrative Ventricular Rate 66 BPM Atrial Rate 66 BPM P-R Interval 150 ms QRS Duration 90 ms Q-T Interval 384 ms QTC Calculation(Bazett) 402 ms P [place] 22 degrees R [place] 18 degrees T [place] 12 degrees Normal sinus rhythm with sinus arrhythmia Normal ECG No previous ECGs available Confirmed by MD PETERSON YOCHAI ([id number]) on 09/21/2017 1:53:30 PM Procedure Note Interface, External Ris In - 09/21/2017 1:53 PM CREDIT REPORTING CLERK Ventricular Rate 66 BPM Atrial Rate 66 BPM P-R Interval 150 ms QRS Duration 90 ms Q-T Interval 384 ms QTC Calculation(Bazett) 402 ms P [place] 22 degrees R [place] 18 degrees T [place] 12 degrees Normal sinus rhythm with sinus arrhythmia Normal ECG No previous ECGs available Confirmed by MD PETERSON YOCHAI ([id number]) on 09/21/2017 1:53:30 PM POC-Glucose meter (09/20/2017 7:47 PM) Component Value Ref Range POC-Glucose Meter 109Comment:TESTED AT [address] 70 - 110 mg/dL [id number] Specimen Performing Laboratory Blood [address] [address] REPORT OF PROCEDURE - ENDOSCOPY URL (09/20/2017 5:35 PM)POCT , urine ( 09/20/2017 4:57 PM) Component Value Ref Range Test Urine, POC Negative Control line present?, POC Yes Background clear?, POC Yes UPT Cassette Lot #, POC [id number] UPT Cassette Expiration Date, POC 12/15/18 Specimen Performing Laboratory Urine Triglycerides (09/20/2017 3:32 PM) Component Value Ref Range Triglycerides 614Comment:Specimen slightly hemolyzed mg/dL Specimen Performing Laboratory Blood - Central Venous Line [address] [address] Narrative TRIGLYCERIDE REFERENCE RANGE Low Risk<150 Borderline Risk 150-199 High [id number] Very High Risk >=500 Specimen markedly lipemic Hepatic function panel (09/20/2017 5:41 AM) Component Value Ref Range Protein, Total 6.4 6.0 - 8.3 gm/dL Albumin 2.8(L) 3.5 - 5.0 g/dL Total Bilirubin 0.4 0.2 - 1.2 mg/dL Bilirubin, Direct 0.2 0.1 - 0.5 mg/dL Alkaline Phosphatase 130 40 - 150 U/L AST 20 5 - 34 U/L ALT 38 6 - 55 U/L Specimen Performing Laboratory Blood - Central Venous Line [address] [address] Urinalysis w/ Microscopic (09/20/2017 5:36 AM) Component Value Ref Range Color, UA Diane Clarity, UA Hazy Specific [place], UA 1.009 1.001 - 1.035 pH, UA 7.5 5.0 - 8.0 Protein, UA 20 mg/dL(A) Negative Glucose, UA Negative Negative Ketones, UA Negative Negative Bilirubin, UA Negative Negative Blood, UA Large(A) Negative Nitrite, UA Negative Negative Leukocytes, UA Trace(A) Negative Urobilinogen, UA 2.0(H) 0.2 - 1.0 mg/dL RBC, UA 1552 /HPF WBC, UA 65 /HPF Mucus Rare Squam Epithel, UA 12 /HPF Specimen Source Urine, Clean Catch Specimen Performing Laboratory Urine - Urine, Clean Catch [address] [address] Urine culture (09/20/2017 5:36 AM) Component Value Ref Range Result No growth Specimen Performing Laboratory Urine - Urine, Clean Catch [address] [address] Blood culture (09/19/2017 9:28 PM)Only the most recent of2 resultswithin the time period is included. Component Value Ref Range Result No growth in 5 days Specimen Performing Laboratory Blood - Line, Venous [facility] [address] [address] Prothrombin time/INR (09/19/2017 9:27 PM) Component Value Ref Range Protime 14.0 11.7 - 14.7 seconds INR 1.1 <=5.9 Specimen Performing Laboratory Blood - Line, Venous [address] [address] Narrative RECOMMENDED COUMADIN/WARFARIN INR THERAPY RANGES STANDARD DOSE: 2.0 - 3.0 Includes: PROPHYLAXIS for venous thrombosis, systemic embolization; TREATMENT for venous thrombosis and/or pulmonary embolus. HIGH RISK: Target INR is 2.5-3.5 for patients with mechanical heart valves. Comprehensive metabolic panel (09/19/2017 9:27 PM) Component Value Ref Range Protein, Total 6.9 6.0 - 8.3 gm/dL Albumin 3.0(L) 3.5 - 5.0 g/dL Alkaline Phosphatase 140 40 - 150 U/L Total Bilirubin 0.5 0.2 - 1.2 mg/dL Sodium 138 136 - 145 meq/L Potassium 3.3(L) 3.5 - 5.1 meq/L Chloride 102 98 - 107 meq/L CO2 27 22 - 29 meq/L BUN 4(L) 7 - 21 mg/dL Creatinine 0.53(L) 0.57 - 1.25 mg/dL Glucose 108(H) 70 - 105 mg/dL Calcium 8.9 8.4 - 10.2 mg/dL AST 24 5 - 34 U/L ALT 43 6 - 55 U/L EGFR 146Comment:ESTIMATED GFR IS NOT ACCURATE mL/min/1.73 sq m CREATININE CLEARANCE IN PREDICTING GLOMERULAR FILTRATION RATE. ESTIMATED GFR IS NOT APPLICABLE FOR DIALYSIS PATIENTS. Specimen Performing Laboratory Blood - Line, Venous [address] [address] from Last 3 Months
[2017-09-27] MEDS ORDERED: Morphine PF 1 MG/ML SYR IVP PRN (20:16)
[2017-09-27] MEDS ORDERED: Morphine 4 MG/ML VIAL SLOW IVP PRN (20:17)
[2017-09-27] MEDS ORDERED: Bisacodyl 10 MG SUPP PR PRN (20:21)
[2017-09-27] MEDS: Pantoprazole 40 MG VIAL IVP SCH (21:09)
[2017-09-27] MEDS: Promethazine HCl 25 MG/ML VIAL SLOW IVP PRN (21:10)
[2017-09-27] MEDS: Ampicillin/Sulbactam 3 GM, Syringe 1.6 ML in Sterile Water 6.4 ML SLOW IVP SCH (21:11)
[2017-09-28] MEDS: Ondansetron HCl/PF 4 MG/2 ML Vial IVP PRN ×3 (01:42→15:59)
[2017-09-28] MEDS: D5 1/2 NS w/20 mEq KCL 1,000 ML IV SCH ×2 (03:51→19:35)
[2017-09-28] MEDS: Dextrose 10% in Water 1,000 ML IV SCH ×4 (03:51→23:06)
[2017-09-28] MEDS: Ampicillin/Sulbactam 3 GM, Syringe 1.6 ML in Sterile Water 6.4 ML SLOW IVP SCH ×3 (03:52→14:43)
[2017-09-28] MEDS: Promethazine HCl 25 MG/ML VIAL SLOW IVP PRN ×2 (05:07→21:56)
[2017-09-28 05:39] LABS: #Eosinphils 0.1 thou/uL (0.0-0.7); #Monocytes 0.6 thou/uL (0.11-0.59); #Neutrophils 6.6 thou/uL (1.40-6.50); %Basophils 0.2 % (0.0-1.0); %Lymphocytes 21.5 % (21.0-51.0); %Monocytes 6.8 % (0.0-10.0); Hematocrit 34.8 % (36.0-47.0); Mean Platelet Volume 6.6 fL (7.4-10.4); Red Blood Cell (RBC) Count 3.88 mill/uL (4.20-5.40); White Blood Cell (WBC) Count 9.4 thou/uL (4.8-10.8)
[2017-09-28 06:02] LABS: Anion Gap 15 mmol/L (10-20); BUN (Urea Nitrogen) 12 mg/dL (7.0-18.7); Calc. Creatinine Clearance 214 mL/min (70-130); Calcium 9.7 mg/dL (7.8-10.44); Carbon Dioxide 23 mmol/L (22-29); Chloride 103 mmol/L (98-107); Estimated GFR-MDRD Greater than 90
[2017-09-28] MEDS: Enoxaparin Sodium 40 MG/0.4 ML SYRINGE SC SCH (08:06)
--- NOTE | 2017-09-28 10:05 | HP ---
CHIEF COMPLAINT: Gastric leak. HISTORY OF PRESENT ILLNESS: This is a 22-year-old female who underwent a sleeve gastrectomy for mor bid obesity in 06/2017. She did well until 09/14/2017 when she developed abdominal and shoulder michel n. She came to the hospital on 09/15/2017. CT scan showed an abscess with probable leak. She went to the OR, this was drained, then went to [facility] where a stent was placed. She had a followup swallow a few days ago that showed a persistent leak despite the stent, but the stent was in the pro per position. So the plan is to keep her n.p.o. and on TPN for a week and repeat that swallow study . She says she feels a lot better. She is up walking. PAST MEDICAL HISTORY: Polycystic ovaries. PAST SURGICAL HISTORY: The sleeve, drainage procedure, stents. MEDICATIONS: Unasyn Dulcolax suppository, Lovenox, morphine currently, Zofran, Protonix, Phenergan . ALLERGIES: She has no known drug allergies. SOCIAL HISTORY: She is single. No tobacco. She does drink occasionally. No known drug allergies. FAMILY HISTORY: Noncontributory. PHYSICAL EXAMINATION: VITAL SIGNS: Temperature 97.7, pulse 92, blood pressure 107/74. GENERAL: She is awake, alert, in no apparent distress, walking. HEENT: No jaundice. LUNGS: Clear. HEART: Regular rate and rhythm. ABDOMEN: Soft, mild tenderness. Wounds are healing well. There is a MALIHA drain in the upper abdomen . EXTREMITIES: Unremarkable. LABORATORY AND X-RAY FINDINGS: White count 9.4, H\T\H 10 and 34, platelet count 572. Electrolytes are fine. ASSESSMENT: Gastric leak status post stent placement. PLAN: Continue Unasyn and TPN. Repeat swallow in 6 days.
[2017-09-28] MEDS: Ketorolac Tromethamine 30 MG/ML VIAL IVP PRN (12:27)
[2017-09-28] MEDS ORDERED: Multivitamins, Adult 10 ML, TRACE ELEMENT CONCENTRATE 1 ML in D30W-AA 10% with Lytes 2,... IV SCH (14:00)
[2017-09-28] MEDS: metroNIDAZOLE 500 MG in Premix Bag 1 BAG IVPB SCH ×2 (17:57→23:06)
[2017-09-28] MEDS: cefTRIAXone\\ROCEPHIN 2 GM in Sodium Chloride 0.9% 100 ML IVPB SCH (19:34)
[2017-09-28] MEDS: Pantoprazole 40 MG VIAL IVP SCH (21:55)
--- NOTE | 2017-09-28 22:02 | CON ---
DATE OF CONSULTATION: 09/28/2017 REASON FOR CONSULTATION: Gastric sleeve leak with intraabdominal abscess. HISTORY OF PRESENT ILLNESS: A 22-year-old who has a history of polycystic ovarian syndrome, type 2 diabetes, obesity, underwent sleeve gastrectomy in mid June and then at the end of August developed left shoulder pain sharp, some dyspnea. CT showed fluid collections, some small amount of free air in the left upper quadrant consistent with staple line disruption. The patient had diagnostic laparoscopy with drainage of the left upper quadrant perisplenic abscess and EGD with methylene blue. The procedure was reviewed, minimal adhesions were noted in the area. No obvious purulent fluid. Around the EG junction, there was more inflammation. A little bit of free fluid noted, sent for culture. An EGD was done allowing direct visualization. No bowels were seen. A methylene blue was inserted. No collar was noticed to be extravasated and then there is some purulent fluid seen along the left gutter which was aspirated. An abscess cavity was encountered lateral to the spleen. This was irrigated with saline. Cultures from the site have been reviewed below. After that, patient was transferred to [facility] for a stent placement which was accomplished. The patient had a follow up Barium swallow or Gastrografin swallow, which demonstrated persistent leak despite the stent. The stent was in the proper position and then she was kept n.p.o. with TPN for a week. We will repeat the swallow study. Currently, she has minimal pain in the left shoulder area. No headaches, visual symptoms, sore throat, odynophagia , dysphagia, no vomiting, no respiratory symptoms. No abdominal pain, no genitourinary symptoms, no joint symptoms. PAST MEDICAL HISTORY: Polycystic ovarian syndrome, diabetes mellitus type 2. PAST SURGICAL HISTORY: Sleeve gastrectomy with a leak, placement of a stent. Also, she had a percutaneous drainage of abscess and placement of a PICC line. MEDICATIONS: Unasyn, Phenergan. ALLERGIES: None. SOCIAL HISTORY: Works for [employer]. Never smoker. FAMILY HISTORY: Noncontributory. PHYSICAL EXAMINATION: VITAL SIGNS: T-max 98.4 to 99, blood pressure 123/87, pulse 83, respirations 16 , O2 sat 97%. SKIN: Shows the left upper quadrant MALIHA drain and a PICC line double lumen left upper extremity in the ports for the laparoscopy which are healed, no lymphadenopathy. HEENT: Noncontributory. LUNGS: Clear. HEART: S1, S2, regular rate. ABDOMEN: Soft, mildly tender left upper quadrant. No bladder distention. EXTREMITIES: No joint inflammatory activity. NEUROLOGIC: Nonfocal including cognitive function. LABORATORY DATA: White cell count 9.4, hemoglobin 10.7, platelets 572. Sodium 137, creatinine 0.58. Microbiology with group C strep, Staphylococcus caprae and 3 different anaerobes. The patient is currently receiving the ampicillin sulbactam. ASSESSMENT AND DISCUSSION: Sleeve gastrectomy with leak, stent placement and status post drainage, laparoscopy, persistence of leak and outpatient on TPN and n.p.o. as well as antimicrobial therapy. We will switch her to Rocephin and Flagyl or meropenem and continue current management. Evidently, source control, i.e.: resolution of leak is the precondition necessary for success in control of inflammatory process. MTDD
[2017-09-29] MEDS: metroNIDAZOLE 500 MG in Premix Bag 1 BAG IVPB SCH ×4 (05:12→23:17)
[2017-09-29] MEDS: D5 1/2 NS w/20 mEq KCL 1,000 ML IV SCH (05:12)
[2017-09-29] MEDS: Ondansetron HCl/PF 4 MG/2 ML Vial IVP PRN ×4 (07:17→20:19)
[2017-09-29 08:56] VITALS: BMI 34.3
[2017-09-29] MEDS: Enoxaparin Sodium 40 MG/0.4 ML SYRINGE SC SCH (08:59)
[2017-09-29] MEDS: Dextrose 10% in Water 1,000 ML IV SCH ×2 (09:00→20:44)
[2017-09-29] MEDS: Ketorolac Tromethamine 30 MG/ML VIAL IVP PRN (11:45)
[2017-09-29] MEDS: SODIUM CHLORIDE IV SCH ×11 (15:19)
[2017-09-29] MEDS: FAT EMULSIONS IV SCH ×11 (15:19)
[2017-09-29] MEDS: [UNRECOGNIZED DRUG - OTHER] IV SCH ×11 (15:19)
[2017-09-29] MEDS: SODIUM ACETATE IV SCH ×11 (15:19)
[2017-09-29] MEDS ORDERED: Lorazepam 2 MG/ML VIAL SLOW IVP PRN (17:17)
[2017-09-29] MEDS: cefTRIAXone\\ROCEPHIN 2 GM in Sodium Chloride 0.9% 100 ML IVPB SCH (18:03)
[2017-09-29] MEDS: Pantoprazole 40 MG VIAL IVP SCH (20:21)
[2017-09-29] MEDS: Lorazepam 2 MG/ML VIAL SLOW IVP PRN (20:29)
[2017-09-30] MEDS: metroNIDAZOLE 500 MG in Premix Bag 1 BAG IVPB SCH ×3 (05:13→16:59)
[2017-09-30] MEDS: D5 1/2 NS w/20 mEq KCL 1,000 ML IV SCH ×2 (05:25→08:52)
[2017-09-30 05:55] LABS: ALT (SGPT) 79 U/L (8-55); AST (SGOT) 42 U/L (5-34); Alkaline Phosphatase 150 U/L (40-150); Anion Gap 10 mmol/L (10-20); BUN (Urea Nitrogen) 12 mg/dL (7.0-18.7); Bilirubin, Total 0.5 mg/dL (0.2-1.2); Calc. Creatinine Clearance 206 mL/min (70-130); Calcium 9.6 mg/dL (7.8-10.44); Carbon Dioxide 26 mmol/L (22-29); Chloride 103 mmol/L (98-107); Estimated GFR-MDRD Greater than 90; Globulin 4.4 g/dL (2.4-3.5); Magnesium 1.9 mg/dL (1.6-2.6); Phosphorus 4.5 mg/dL (2.3-4.7); Protein, Total 7.9 g/dL (6.0-8.3)
[2017-09-30] MEDS: Ondansetron HCl/PF 4 MG/2 ML Vial IVP PRN ×3 (08:52→17:00)
[2017-09-30] MEDS: Enoxaparin Sodium 40 MG/0.4 ML SYRINGE SC SCH (08:52)
[2017-09-30] MEDS: Dextrose 10% in Water 1,000 ML IV SCH (09:17)
[2017-09-30] MEDS: SODIUM ACETATE IV SCH ×11 (13:26)
[2017-09-30] MEDS: SODIUM CHLORIDE IV SCH ×11 (13:26)
[2017-09-30] MEDS: FAT EMULSIONS IV SCH ×11 (13:26)
[2017-09-30] MEDS: [UNRECOGNIZED DRUG - OTHER] IV SCH ×11 (13:26)
[2017-09-30] MEDS: Ketorolac Tromethamine 30 MG/ML VIAL IVP PRN (13:28)
[2017-09-30] MEDS: cefTRIAXone\\ROCEPHIN 2 GM in Sodium Chloride 0.9% 100 ML IVPB SCH (17:00)
[2017-09-30] MEDS: Pantoprazole 40 MG VIAL IVP SCH (20:25)
[2017-09-30] MEDS: Lorazepam 2 MG/ML VIAL SLOW IVP PRN (20:25)
[2017-10-01] MEDS: Dextrose 10% in Water 1,000 ML IV SCH ×2 (00:10→17:07)
[2017-10-01] MEDS: metroNIDAZOLE 500 MG in Premix Bag 1 BAG IVPB SCH ×4 (00:11→18:20)
[2017-10-01] MEDS: Ondansetron HCl/PF 4 MG/2 ML Vial IVP PRN ×4 (00:16→18:11)
[2017-10-01 04:52] LABS: ALT (SGPT) 68 U/L (8-55); AST (SGOT) 30 U/L (5-34); Alkaline Phosphatase 137 U/L (40-150); Anion Gap 12 mmol/L (10-20); BUN (Urea Nitrogen) 16 mg/dL (7.0-18.7); Bilirubin, Total 0.4 mg/dL (0.2-1.2); Calc. Creatinine Clearance 206 mL/min (70-130); Calcium 9.4 mg/dL (7.8-10.44); Carbon Dioxide 25 mmol/L (22-29); Chloride 103 mmol/L (98-107); Estimated GFR-MDRD Greater than 90; Globulin 4.2 g/dL (2.4-3.5); Magnesium 1.9 mg/dL (1.6-2.6); Phosphorus 4.7 mg/dL (2.3-4.7); Protein, Total 7.6 g/dL (6.0-8.3)
[2017-10-01] MEDS: Enoxaparin Sodium 40 MG/0.4 ML SYRINGE SC SCH (08:51)
[2017-10-01] MEDS ORDERED: Clopidogrel Bisulfate 75 MG TAB ONE (14:59)
[2017-10-01] MEDS: SODIUM CHLORIDE IV SCH ×11 (15:39)
[2017-10-01] MEDS: [UNRECOGNIZED DRUG - OTHER] IV SCH ×11 (15:39)
[2017-10-01] MEDS: SODIUM ACETATE IV SCH ×11 (15:39)
[2017-10-01] MEDS: FAT EMULSIONS IV SCH ×11 (15:39)
[2017-10-01] MEDS: cefTRIAXone\\ROCEPHIN 2 GM in Sodium Chloride 0.9% 100 ML IVPB SCH (17:59)
[2017-10-01] MEDS: Pantoprazole 40 MG VIAL IVP SCH (18:11)
[2017-10-01] MEDS: Lorazepam 2 MG/ML VIAL SLOW IVP PRN (20:25)
[2017-10-02] MEDS: metroNIDAZOLE 500 MG in Premix Bag 1 BAG IVPB SCH ×5 (00:25→23:52)
[2017-10-02] MEDS: Ondansetron HCl/PF 4 MG/2 ML Vial IVP PRN ×4 (03:43→20:43)
[2017-10-02] MEDS: Ketorolac Tromethamine 30 MG/ML VIAL IVP PRN ×3 (03:45→20:39)
[2017-10-02 05:14] LABS: ALT (SGPT) 62 U/L (8-55); AST (SGOT) 29 U/L (5-34); Alkaline Phosphatase 134 U/L (40-150); Anion Gap 12 mmol/L (10-20); BUN (Urea Nitrogen) 14 mg/dL (7.0-18.7); Bilirubin, Total 0.4 mg/dL (0.2-1.2); Calc. Creatinine Clearance 210 mL/min (70-130); Calcium 9.5 mg/dL (7.8-10.44); Carbon Dioxide 26 mmol/L (22-29); Chloride 102 mmol/L (98-107); Estimated GFR-MDRD Greater than 90; Globulin 4.2 g/dL (2.4-3.5); Magnesium 1.9 mg/dL (1.6-2.6); Phosphorus 4.3 mg/dL (2.3-4.7); Protein, Total 7.7 g/dL (6.0-8.3)
[2017-10-02] MEDS: D5 1/2 NS w/20 mEq KCL 1,000 ML IV SCH ×2 (05:48→23:59)
[2017-10-02] MEDS: Dextrose 10% in Water 1,000 ML IV SCH ×2 (06:15→15:04)
[2017-10-02] MEDS: Enoxaparin Sodium 40 MG/0.4 ML SYRINGE SC SCH (08:34)
--- NOTE | 2017-10-02 13:46 | PRG ---
DATE OF SERVICE: 10/02/2017 ATTENDING PHYSICIAN: Paul Sr M.D. SUBJECTIVE: The patient is status post sleeve gastrectomy in 06/2017. On 09/14, she developed abdominal pain. CT scan showed an abscess with probable leak. She went to the OR where this was drained and then subsequently went to [facility] where a stent was placed. She had a followup study a few days ago that showed a persistent leak despite the stent, but that the stent was in a proper position. She was admitted to the hospital and started on TPN, made strict n.p.o., and started on IV antibiotics. She is currently stable on the surgical floor. OBJECTIVE: VITAL SIGNS: Temperature 98.3, pulse 66, respirations 20, O2 sat 95% on room air, blood pressure 106/67. GENERAL: Well-nourished, well-developed female, in no acute distress. HEENT: Unremarkable. CARDIOVASCULAR: Heart regular rate and rhythm. CHEST: Clear to auscultation. ABDOMEN: Soft, nontender, no masses, no guarding. Active bowel sounds. MALIHA drain with serosanguineous output. LABORATORY STUDIES: WBC 9.4. ASSESSMENT: 1. Status post sleeve gastrectomy with subsequent leak, status post stent placement. 2. S/P drainage of intraabdominal abscess wit MALIHA drain placement. PLAN: Continue current care on floor as ordered. Continue TPN, IV fluids, and IV antibiotics. We will repeat the swallow study on Wednesday10/04/2017. Additional recommendations to follow repeat diagnostic imaging. History, ROS, physical exam, assessment and plan were reviewed with attending trauma surgeon. SHIRLEY
[2017-10-02] MEDS: SODIUM ACETATE IV SCH ×11 (14:53)
[2017-10-02] MEDS: [UNRECOGNIZED DRUG - OTHER] IV SCH ×11 (14:53)
[2017-10-02] MEDS: SODIUM CHLORIDE IV SCH ×11 (14:53)
[2017-10-02] MEDS: FAT EMULSIONS IV SCH ×11 (14:53)
[2017-10-02] MEDS: cefTRIAXone\\ROCEPHIN 2 GM in Sodium Chloride 0.9% 100 ML IVPB SCH (18:12)
[2017-10-02] MEDS: Pantoprazole 40 MG VIAL IVP SCH (20:32)
[2017-10-02] MEDS: Lorazepam 2 MG/ML VIAL SLOW IVP PRN (21:33)
[2017-10-03] MEDS: Dextrose 10% in Water 1,000 ML IV SCH ×2 (00:16→14:06)
[2017-10-03 05:46] LABS: ALT (SGPT) 55 U/L (8-55); AST (SGOT) 27 U/L (5-34); Alkaline Phosphatase 119 U/L (40-150); Anion Gap 11 mmol/L (10-20); BUN (Urea Nitrogen) 15 mg/dL (7.0-18.7); Bilirubin, Total 0.4 mg/dL (0.2-1.2); Calc. Creatinine Clearance 210 mL/min (70-130); Calcium 9.4 mg/dL (7.8-10.44); Carbon Dioxide 25 mmol/L (22-29); Chloride 103 mmol/L (98-107); Estimated GFR-MDRD Greater than 90; Magnesium 1.8 mg/dL (1.6-2.6); Phosphorus 4.5 mg/dL (2.3-4.7); Protein, Total 7.4 g/dL (6.0-8.3)
[2017-10-03] MEDS: metroNIDAZOLE 500 MG in Premix Bag 1 BAG IVPB SCH ×3 (06:24→18:13)
[2017-10-03] MEDS: Ketorolac Tromethamine 30 MG/ML VIAL IVP PRN (08:54)
[2017-10-03] MEDS: Ondansetron HCl/PF 4 MG/2 ML Vial IVP PRN ×3 (08:56→18:13)
[2017-10-03] MEDS: Enoxaparin Sodium 40 MG/0.4 ML SYRINGE SC SCH (08:57)
--- NOTE | 2017-10-03 12:37 | PRG ---
DATE OF SERVICE: 10/03/2017 This is Lul Washington PA-C dictating for Paul Sr M.D. ATTENDING PHYSICIAN: Paul Sr M.D. SUBJECTIVE: The patient is status post sleeve gastrectomy on 07/11/2017. On 09/14/2017, she develop ed abdominal pain. A CT scan showed an abscess with probable leak. She went to the OR where she was then drained, subsequently went to [facility] where a stent was placed. She had a followup study a few days ago that showed a persistent leak despite the stent. She was admitted to the hospital and s tarted on TPN, made strict n.p.o., and started on IV antibiotics. [facility]. OBJECTIVE: VITAL SIGNS: Temperature 98.5, heart rate 80, respiratory rate 18, sat 96%, blood pressure 113/71 bl ood pressure. HEENT: Atraumatic, normocephalic. No JVD or masses. Trachea is midline. PULMONARY: Clear bilaterally via auscultation. ABDOMEN: Soft, nontender, nondistended. CARDIOVASCULAR: S1, S2, regular rate and rhythm. PELVIS: Intact. MALIHA drain with serosanguineous output. ASSESSMENT: 1. Status post sleeve gastrectomy with subsequent leak, status post stent placement. 2. Status post draining intraabdominal abscess, MALIHA drain placement. PLAN: Continue current care on floor. Continue TPN, IV fluids, and IV antibiotics. We will repeat the swallow study tomorrow, on 10/04/2017. Otherwise care will be presumed by Dr. Darinel garcía. The patient has been seen by Dr. Sr and agrees with the above plan.
[2017-10-03] MEDS: SODIUM ACETATE IV SCH ×11 (13:33)
[2017-10-03] MEDS: [UNRECOGNIZED DRUG - OTHER] IV SCH ×11 (13:33)
[2017-10-03] MEDS: SODIUM CHLORIDE IV SCH ×11 (13:33)
[2017-10-03] MEDS: FAT EMULSIONS IV SCH ×11 (13:33)
[2017-10-03] MEDS: cefTRIAXone\\ROCEPHIN 2 GM in Sodium Chloride 0.9% 100 ML IVPB SCH (18:13)
[2017-10-03] MEDS: Pantoprazole 40 MG VIAL IVP SCH (20:38)
[2017-10-03] MEDS: Lorazepam 2 MG/ML VIAL SLOW IVP PRN (20:39)
[2017-10-03] MEDS: D5 1/2 NS w/20 mEq KCL 1,000 ML IV SCH (20:47)
[2017-10-04] MEDS: metroNIDAZOLE 500 MG in Premix Bag 1 BAG IVPB SCH ×3 (00:40→11:44)
[2017-10-04] MEDS: Dextrose 10% in Water 1,000 ML IV SCH (00:54)
[2017-10-04 05:31] LABS: ALT (SGPT) 49 U/L (8-55); AST (SGOT) 28 U/L (5-34); Alkaline Phosphatase 122 U/L (40-150); Anion Gap 12 mmol/L (10-20); BUN (Urea Nitrogen) 13 mg/dL (7.0-18.7); Bilirubin, Total 0.4 mg/dL (0.2-1.2); Calc. Creatinine Clearance 213 mL/min (70-130); Calcium 9.3 mg/dL (7.8-10.44); Carbon Dioxide 26 mmol/L (22-29); Chloride 103 mmol/L (98-107); Estimated GFR-MDRD Greater than 90; Magnesium 1.8 mg/dL (1.6-2.6); Phosphorus 4.6 mg/dL (2.3-4.7); Protein, Total 7.4 g/dL (6.0-8.3)
[2017-10-04] MEDS: Ondansetron HCl/PF 4 MG/2 ML Vial IVP PRN ×2 (06:07→10:24)
[2017-10-04] MEDS: Enoxaparin Sodium 40 MG/0.4 ML SYRINGE SC SCH (09:18)
--- NOTE | 2017-10-04 10:36 | RAD ---
ESOPHAGRAM: HISTORY: Previous leak. Stent in place. FINDINGS: A small amount of Gastrografin contrast was administered. A cylindrical filling defect within the di stal esophageal stent extends above the level of the stent. The contrast passes around the stent rat her than through the lumen. Postoperative changes of the upper stomach are apparent. A small amount of contrast was seen to leak from the left margin of the GE junction, at the level of the mid stent. The stomach is otherwise decompressed. Flouro time = 1 min. IMPRESSION: The distal esophagus/esophagogastric stent is obstructed with large luminal defect. Cause is not chele dent. Contrast passes around the obstructed, with persistent leak from the left side of the gastroes ophageal junction. Findings were called to Dr. Tena at 0815 hours. CODE CR POS: [facility]
[2017-10-04 11:17] VITALS: BP 116/82; TEMP 98.1
--- NOTE | 2017-10-04 11:18 | DIS ---
DISCHARGE DIAGNOSIS: Obstructing gastric stent. PROCEDURES DURING ADMISSION: TPN, IV fluids, and pain management. HOSPITAL COURSE: Patient was accepted in transfer from [facility]. She had some episodes of nausea and vomiting of foamy material. She was kept n.p.o. per request of the [facility] physicians. Repea t Gastrografin swallow this morning showed that the stent was completely obstructed and that there wa s still some leak. So I discussed this with Dr. Guzman in [place] and he is accepting her and return ed transfer to [facility].
[2017-10-04] MEDS: SODIUM ACETATE IV SCH ×11 (13:55)
[2017-10-04] MEDS: FAT EMULSIONS IV SCH ×11 (13:55)
[2017-10-04] MEDS: [UNRECOGNIZED DRUG - OTHER] IV SCH ×11 (13:55)
[2017-10-04] MEDS: SODIUM CHLORIDE IV SCH ×11 (13:55)
[2017-10-04] MEDS: Lorazepam 2 MG/ML VIAL SLOW IVP PRN (14:23)
[2017-10-04] MEDS ORDERED: Lorazepam 2 MG/ML VIAL SLOW IVP SCH (14:30)
== END 2017-10-04 14:30 | disposition short-term general hospital (02) | DRG 395 ==
LOC: SURG B 19:11
PROVIDERS: ADMIT Surgery; ATTEND Surgery
PROC: 3E0436Z Introduction of Nutritional Substance into Central Vein, Percutaneous Approach (ICD-10-PCS; principal; 2017-09-28)
DX: K95.89 Other complications of other bariatric procedure (principal); E11.9 Type 2 diabetes mellitus without complications; Y83.8 Other surgical procedures as the cause of abnormal reaction of the patient, or of later complication, without mention of misadventure at the time of the procedure; E28.2 Polycystic ovarian syndrome; E66.9 Obesity, unspecified; Z68.34 Body mass index [BMI] 34.0-34.9, adult
CPT/HCPCS: 36415; 36416; 74220; 80048; 80053; 83735; 84100; 85025; 87015; 87045; 87046; 87449; 87899; A4216; A4217; C1751; C9113; J0295; J0696; J1650; J1885; J2060; J2274; J2405; J2550; J3475; J7050

== ENCOUNTER 2018-01-31 19:11 | Emergency (ER) | payer BC ==
[2018-01-31 20:26] LABS: #Basophils 0.1 thou/uL (0.0-0.2); #Monocytes 0.7 thou/uL (0.11-0.59); #Neutrophils 7.7 thou/uL (1.40-6.50); %Basophils 0.6 % (0.0-1.0); %Eosinophils 0.3 % (0.0-10.0); %Lymphocytes 19.1 % (21.0-51.0); %Neutrophils 73.1 % (42.0-75.0); Hemoglobin 11.9 g/dL (12.0-16.0); Mean Corpuscular HGB CONC 33.5 g/dL (32.0-36.0); Mean Corpuscular Hemoglobin 30.6 pg (27.0-31.0); Mean Corpuscular Volume 91.3 fl (81.0-99.0); Mean Platelet Volume 6.5 fL (7.4-10.4); Platelet Count 314 thou/uL (130-400); RBC Distribution Width 11.7 % (11.5-14.5); Red Blood Cell (RBC) Count 3.89 mill/uL (4.20-5.40); White Blood Cell (WBC) Count 10.5 thou/uL (4.8-10.8)
[2018-01-31 20:40] LABS: Bilirubin Negative (Negative); Blood, Urine Negative (Negative); Clarity CLEAR (Clear); Glucose, Urine (Dipstick) Negative (Negative); Leukocyte Trace (Negative); Nitrite Positive (Negative); Protein, Urine (Dipstick) Negative (Neg-Trace); Specific Gravity, Urine 1.017 (1.002-1.036)
[2018-01-31 20:41] LABS: Pregnancy Test - Urine (BHCG) Negative (Negative); Pregu Control Background? CLEAR/WHITE (CLR/WHITE); Pregu Control Bar Appear? YES (CONTROL BAR); Specific Gravity 1.017 (1.002-1.036)
[2018-01-31 20:42] LABS: Bacteria/HPF None Seen HPF (None Seen); Hyaline Casts/LPF 7-10 HYALINE CAST LPF (0-3 Hyaline); WBC/HPF 0-3 HPF (0-3)
[2018-01-31 20:43] LABS: Pathc Cast-AUWi Flag 2.57 (0-2.49)
[2018-01-31 20:50] LABS: ALT (SGPT) 13 U/L (8-55); AST (SGOT) 12 U/L (5-34); Albumin 4.2 g/dL (3.5-5.0); Alkaline Phosphatase 74 U/L (40-150); Anion Gap 15 mmol/L (10-20); BUN (Urea Nitrogen) 9 mg/dL (7.0-18.7); Bilirubin, Total 0.6 mg/dL (0.2-1.2); Calc. Creatinine Clearance 0 mL/min (70-130); Carbon Dioxide 23 mmol/L (22-29); Chloride 101 mmol/L (98-107); Estimated GFR-MDRD Greater than 90; Globulin 4.1 g/dL (2.4-3.5); Glucose 83 mg/dL (70-105); Lipase 14 U/L (8-78); Potassium 3.8 mmol/L (3.5-5.1); Protein, Total 8.3 g/dL (6.0-8.3); Sodium 135 mmol/L (136-145)
== END 2018-01-31 22:02 | disposition home or self-care (01) ==
LOC: ERS 19:11
DX: N39.0 Urinary tract infection, site not specified (principal); F32.9 Major depressive disorder, single episode, unspecified; F17.210 Nicotine dependence, cigarettes, uncomplicated
CPT/HCPCS: 36415; 80053; 81003; 81015; 81025; 83690; 85025; 99284

== ENCOUNTER 2018-05-26 17:39 | Emergency (ER) | payer BC ==
[2018-05-26 18:38] LABS: #Lymphocytes 2.5 thou/uL (1.20-3.40); #Monocytes 0.6 thou/uL (0.11-0.59); #Neutrophils 5.2 thou/uL (1.40-6.50); %Basophils 0.4 % (0.0-1.0); %Eosinophils 0.4 % (0.0-10.0); %Lymphocytes 30.1 % (21.0-51.0); %Monocytes 7.3 % (0.0-10.0); %Neutrophils 61.8 % (42.0-75.0); Hemoglobin 12.3 g/dL (12.0-16.0); Mean Corpuscular HGB CONC 35.6 g/dL (32.0-36.0); Mean Corpuscular Hemoglobin 31.9 pg (27.0-31.0); Mean Corpuscular Volume 89.7 fL (78.0-98.0); Mean Platelet Volume 6.7 fL (7.4-10.4); Platelet Count 233 thou/uL (130-400); RBC Distribution Width 12.5 % (11.5-14.5); Red Blood Cell (RBC) Count 3.84 mill/uL (4.20-5.40); White Blood Cell (WBC) Count 8.4 thou/uL (4.8-10.8)
[2018-05-26 19:00] LABS: ALT (SGPT) 8 U/L (8-55); AST (SGOT) 10 U/L (5-34); Albumin 4.1 g/dL (3.5-5.0); Alkaline Phosphatase 60 U/L (40-150); Anion Gap 13 mmol/L (10-20); BUN (Urea Nitrogen) 8 mg/dL (7.0-18.7); Bilirubin, Total 0.2 mg/dL (0.2-1.2); Calc. Creatinine Clearance 0 mL/min (70-130); Calcium 9.7 mg/dL (7.8-10.44); Carbon Dioxide 23 mmol/L (22-29); Chloride 103 mmol/L (98-107); Estimated GFR-MDRD Greater than 90; Globulin 3.6 g/dL (2.4-3.5); Glucose 78 mg/dL (70-105); Potassium 3.6 mmol/L (3.5-5.1); Protein, Total 7.7 g/dL (6.0-8.3); Sodium 135 mmol/L (136-145)
== END 2018-05-26 23:28 | disposition left against medical advice (07) ==
LOC: ERS 17:39
DX: Z53.21 Procedure and treatment not carried out due to patient leaving prior to being seen by health care provider (principal)
CPT/HCPCS: 36415; 80053; 84702; 85025

== ENCOUNTER 2018-06-20 15:24 | Emergency (ER) | payer BC, OTHER ==
[2018-06-20 16:03] LABS: #Basophils 0.1 thou/uL (0.0-0.2); #Eosinphils 0.1 thou/uL (0.0-0.7); #Lymphocytes 2.5 thou/uL (1.20-3.40); #Monocytes 0.7 thou/uL (0.11-0.59); #Neutrophils 4.7 thou/uL (1.40-6.50); %Basophils 0.7 % (0.0-1.0); %Eosinophils 0.8 % (0.0-10.0); %Monocytes 8.7 % (0.0-10.0); %Neutrophils 58.8 % (42.0-75.0); Hemoglobin 11.5 g/dL (12.0-16.0); Mean Corpuscular HGB CONC 35.3 g/dL (32.0-36.0); Mean Corpuscular Hemoglobin 32.1 pg (27.0-31.0); Mean Corpuscular Volume 90.8 fL (78.0-98.0); Mean Platelet Volume 6.6 fL (7.4-10.4); Platelet Count 254 thou/uL (130-400); RBC Distribution Width 12.1 % (11.5-14.5); Red Blood Cell (RBC) Count 3.59 mill/uL (4.20-5.40)
[2018-06-20 17:11] LABS: Bilirubin Negative (Negative); Blood, Urine Negative (Negative); Clarity CLOUDY (Clear); Glucose, Urine (Dipstick) Negative (Negative); Leukocyte Negative (Negative); Nitrite Negative (Negative); Protein, Urine (Dipstick) Negative (Neg-Trace); Specific Gravity, Urine 1.027 (1.002-1.036); pH, Urine 5.5 (5.0-9.0)
--- NOTE | 2018-06-20 19:43 | ULT ---
RIGHT UPPER QUADRANT ULTRASOUND: INDICATIONS: Right upper quadrant pain. FINDINGS: There are small, mobile gallstones within the gallbladder. No sonographic Brian sign is reported. The common bile duct measures 7.6 mm. No heidi intrahepatic biliary ductal dilatation is evident. T he pancreas is largely obscured. The right kidney measures 10.7 x 5.1 x 5.6 cm. No focal renal lesi on or hydronephrosis is demonstrated. Appropriate flow is seen within the portal vein. IMPRESSION: Cholelithiasis without sonographic evidence of acute cholecystitis. Upper limits of normal common bi le duct measures 7.6 mm, without heidi intrahepatic biliary ductal dilatation. POS: [facility]
== END 2018-06-20 19:23 | disposition home or self-care (01) ==
LOC: ERS 15:24
DX: O99.612 Diseases of the digestive system complicating pregnancy, second trimester (principal); K80.20 Calculus of gallbladder without cholecystitis without obstruction; O99.332 Smoking (tobacco) complicating pregnancy, second trimester; F17.210 Nicotine dependence, cigarettes, uncomplicated; Z3A.18 18 weeks gestation of pregnancy
CPT/HCPCS: 36415; 76705; 81003; 84702; 85025

== ENCOUNTER 2018-09-11 13:18 | Day surgery (SDC) | payer BC, OTHER ==
[2018-09-11 13:51] VITALS: BMI 34.5
[2018-09-11 15:42] LABS: Bilirubin Negative (Negative); Blood, Urine Negative (Negative); Clarity CLEAR (Clear); Glucose, Urine (Dipstick) Negative (Negative); Leukocyte Negative (Negative); Nitrite Negative (Negative); Protein, Urine (Dipstick) Negative (Neg-Trace); Specific Gravity, Urine 1.015 (1.002-1.036); pH, Urine 6.5 (5.0-9.0)
[2018-09-11 15:45] LABS: Bacteria/HPF None Seen HPF (None Seen); Hyaline Casts/LPF 4-6 HYALINE CAST LPF (0-3 Hyaline); Pathc Cast-AUWi Flag 1.59 (0-2.49); RBC/HPF 0-3 HPF (0-3); Squamous Epithelial 0-3 HPF (0-3); WBC/HPF 0-3 HPF (0-3)
--- NOTE | 2018-09-11 18:00 | PRG ---
DATE OF SERVICE: 09/11/2018 TIME OF SERVICE: 1630 PRESENTING COMPLAINT: Midline lower back pain. HISTORY OF PRESENT ILLNESS: Ms. Alexis is a 30-week G1, P0 who sees Dr. Elmer Rouse. She had enrol lment into care at 7 weeks gestation. She reports several days of midline lower back pain, denies dy suria. Reports active fetus. Denies bleeding, denies nausea or vomiting. OB AND BOAT WORKER HISTORY: Uncomplicated from antepartum record on the unit. The patient is O po sitive, antibody negative, Pap negative, rubella immune, VDRL nonreactive, GC chlamydia negative, nor mal NIPT results not in the chart. PAST MEDICAL HISTORY: PCOS and reflux. PAST SURGICAL HISTORY: Gastric sleeve, 80 pound weight loss, anastomotic leak with approximately 1 m onth postoperative stay in the hospital. MEDICATIONS: vitamins. ALLERGIES: SULFA, MORPHINE, DILAUDID and PHENERGAN. FAMILY HISTORY: Noncontributory. REVIEW OF SYSTEMS: Noncontributory. PHYSICAL EXAMINATION: GENERAL: female. VITAL SIGNS: 5 feet 3, 195, BMI 35, temperature 98.4, respirations 18, blood pressure 131/82. HEENT: Within normal limits. LUNGS: Clear to auscultation bilaterally. HEART: Regular rate and rhythm. BREASTS: No masses bilaterally. ABDOMEN: Soft, nontender. Fundal height 30 cm. FHTs 130s. PELVIC: Vulva without lesions. Vagina without discharge. Cervix closed, long, and high. EXTREMITIES: Without clubbing, cyanosis or edema. No CVA tenderness noted on back exam. IMAGING DATA: UA was sent which revealed it was yellow, clear, pH of 6.5. Specific gravity 1. 015, negative urine protein, negative glucose, negative ketones, negative blood, negative nitrites, n egative bilirubin, negative leukocyte esterase, micro confirmed these findings. IMPRESSION: Lower back pain and discomforts of early third trimester, no evidence of prete rm labor or UTI. PLAN: Discharge home. The patient has scheduled follow up with Dr. Rouse in 3 business days.
== END 2018-09-11 16:33 | disposition home or self-care (01) ==
LOC: L&D/OP 13:18
PROVIDERS: ATTEND Obstetrics & Gynecology
DX: O99.89 Other specified diseases and conditions complicating pregnancy, childbirth and the puerperium (principal); M54.5 Low back pain; O99.613 Diseases of the digestive system complicating pregnancy, third trimester; K21.9 Gastro-esophageal reflux disease without esophagitis; O99.843 Bariatric surgery status complicating pregnancy, third trimester; O99.283 Endocrine, nutritional and metabolic diseases complicating pregnancy, third trimester; E28.2 Polycystic ovarian syndrome; Z3A.30 30 weeks gestation of pregnancy; Z79.899 Other long term (current) drug therapy; Z88.2 Allergy status to sulfonamides; Z88.5 Allergy status to narcotic agent; Z88.8 Allergy status to other drugs, medicaments and biological substances
CPT/HCPCS: 81001; 99283

== ENCOUNTER 2018-09-19 19:51 | Day surgery (SDC) | payer OTHER ==
[2018-09-19 20:29] VITALS: BP 103/64; TEMP 98.2
--- NOTE | 2018-09-20 07:16 | PRG ---
DATE OF SERVICE: 09/19/2018 TIME OF SERVICE: 20:50 PRESENTING COMPLAINT: Vaginal spotting. HISTORY OF PRESENT ILLNESS: Ms. Alexis is a 23-year-old G1, P0 with an EDC of 11/18 placing her at 3 1 weeks' gestation, who has been here before. She reports she had intercourse on Wednesday and notice d a small amount of vaginal spotting yesterday and today. She denies contractions. She denies ruptu re of membranes. She reports an active fetus. OB AND MAJOR GENERAL HISTORY: Primigravida sees Dr. Rouse, uncomplicated , O positive, antibody negat elijah, Pap negative, rubella immune, VDRL nonreactive, hepatitis B, GC chlamydia negative. PAST MEDICAL HISTORY: Significant for reflux. PAST SURGICAL HISTORY: Gastric sleeve in 2017. ALLERGIES: SULFA, MORPHINE, DILAUDID, PHENERGAN. MEDICATIONS: vitamins. SOCIAL HISTORY: Denies tobacco, alcohol, or drug use. FAMILY HISTORY: Noncontributory. REVIEW OF SYSTEMS: Noncontributory. PHYSICAL EXAMINATION: GENERAL: Overweight female in no acute distress. Pulse 85, respirations 18, temperature 98 .4, blood pressure 118/72. HEENT: Within normal limits. LUNGS: Clear to auscultation bilaterally. HEART: Regular rate and rhythm. ABDOMEN: Soft and nontender without palpable contractions. Fundal height 32 cm. FHTs 130s to 140s. PELVIC: Vulva without lesions. Vagina, normal leukorrhea of noted. No blood noted. Cerv ix closed, long, and high posterior mid texture. EXTREMITIES: Without clubbing, cyanosis, or edema. heart rate tracing was carried out for greater than 30 minutes, which was reactive, baseline of 130s to 140s, positive accelerations, no contractions noted. Category 1 strip. IMPRESSION: Postcoital spotting, no evidence of labor. PLAN: Discharge home, keep scheduled followup with Dr. Rouse.
== END 2018-09-19 21:10 | disposition home or self-care (01) ==
LOC: L&D/OP 19:51
PROVIDERS: ATTEND Obstetrics & Gynecology
DX: O26.853 Spotting complicating pregnancy, third trimester (principal); Z3A.31 31 weeks gestation of pregnancy
CPT/HCPCS: 99282

== ENCOUNTER 2018-10-09 11:28 | Day surgery (SDC) | payer OTHER ==
[2018-10-09 12:58] VITALS: BMI 35.4
[2018-10-09 13:01] LABS: Amnisure Test No Membranes Rupture (No Rupture)
[2018-10-09 13:02] LABS: Amnisure Internal Control QC ACCEPTABLE (ACCEPTABLE)
[2018-10-09 15:21] LABS: Bilirubin Negative (Negative); Blood, Urine Negative (Negative); Clarity CLOUDY (Clear); Glucose, Urine (Dipstick) 100 mg/dL (Negative); Leukocyte Small (Negative); Nitrite Negative (Negative); Protein, Urine (Dipstick) Negative (Neg-Trace); Specific Gravity, Urine 1.013 (1.002-1.036); pH, Urine 6.5 (5.0-9.0)
[2018-10-09 15:22] LABS: Bacteria/HPF 4+ HPF (None Seen)
[2018-10-09 15:23] LABS: Hyaline Casts/LPF 0-3 HYALINE CAST LPF (0-3 Hyaline); Manual Microscopic Reviewed? No Path Casts Seen; Pathc Cast-AUWi Flag 3.48 (0-2.49)
[2018-10-09] MEDS ORDERED: cefTRIAXone\\ROCEPHIN 1 GM VIAL IM SCH (16:45)
--- NOTE | 2018-10-09 17:13 | PDOC.EVN ---
Event Note - Event Note Event Note: OBGYN Rehabilitation Counselor Triage B Dr Rouse gave patient's initial orders while I was attending to a patient in the ED for [facility]. I arrived in triage at around 1655 and was requested to write a RX for macrobid 100mg po BID x 7 days, and order Rocephin 1 gram IM (500mg IM x 2 divided, for tolerability). I saw the patient at bedside and evaluated the strip: reactive FHTs at 130s. No uterine contrcations. Plan of care for UTI RX discussed with her and family member in room. Amnisure and VP3 were negative. I performed valsalva and cough maneuvers and no leakage seen. No evidence labor , pyelo, or LOF. OK for outpatient care. F/U with Dr Rouse.
== END 2018-10-09 17:48 | disposition home or self-care (01) ==
LOC: L&D/OP 11:28
PROVIDERS: ATTEND Obstetrics & Gynecology
DX: O23.40 Unspecified infection of urinary tract in pregnancy, unspecified trimester (principal); Z79.899 Other long term (current) drug therapy; Z88.2 Allergy status to sulfonamides; Z88.5 Allergy status to narcotic agent; Z88.8 Allergy status to other drugs, medicaments and biological substances
CPT/HCPCS: 36415; 81001; 84112; 87480; 87510; 87660; 96372; 99284; J0696

== ENCOUNTER 2018-10-27 20:04 | Day surgery (SDC) | payer OTHER ==
[2018-10-27 20:48] VITALS: BMI 37.2
[2018-10-27] MEDS ORDERED: Ondansetron PF 4 MG/2 ML Vial IVP PRN (20:58)
[2018-10-27] MEDS ORDERED: Lactated Ringer's 1,000 ML IV SCH ×2 (21:00)
[2018-10-27 22:00] LABS: #Basophils 0.1 thou/uL (0.0-0.2); #Lymphocytes 2.3 thou/uL (1.20-3.40); #Monocytes 0.7 thou/uL (0.11-0.59); #Neutrophils 5.8 thou/uL (1.40-6.50); %Basophils 0.6 % (0.0-1.0); %Eosinophils 0.5 % (0.0-10.0); %Lymphocytes 25.8 % (21.0-51.0); %Monocytes 7.5 % (0.0-10.0); %Neutrophils 65.5 % (42.0-75.0); Hemoglobin 10.9 g/dL (12.0-16.0); Mean Corpuscular HGB CONC 34.5 g/dL (32.0-36.0); Mean Corpuscular Hemoglobin 29.2 pg (27.0-31.0); Mean Corpuscular Volume 84.4 fL (78.0-98.0); Mean Platelet Volume 7.5 fL (7.4-10.4); Platelet Count 313 thou/uL (130-400); RBC Distribution Width 12.9 % (11.5-14.5); Red Blood Cell (RBC) Count 3.75 mill/uL (4.20-5.40); White Blood Cell (WBC) Count 8.9 thou/uL (4.8-10.8)
[2018-10-27 22:29] LABS: Bilirubin Negative (Negative); Blood, Urine Negative (Negative); Clarity CLEAR (Clear); Glucose, Urine (Dipstick) Negative (Negative); Leukocyte Negative (Negative); Nitrite Negative (Negative); Protein, Urine (Dipstick) Negative (Neg-Trace); Specific Gravity, Urine 1.004 (1.002-1.036); Urobilinogen 0.2 mg/dL (0.2-1.0)
[2018-10-27 22:47] LABS: ALT (SGPT) 10 U/L (8-55); AST (SGOT) 12 U/L (5-34); Albumin 3.7 g/dL (3.5-5.0); Alkaline Phosphatase 184 U/L (40-150); Anion Gap 14 mmol/L (10-20); BUN (Urea Nitrogen) 6 mg/dL (7.0-18.7); Bilirubin, Total 0.2 mg/dL (0.2-1.2); Calc. Creatinine Clearance 250 mL/min (70-130); Calcium 9.3 mg/dL (7.8-10.44); Carbon Dioxide 20 mmol/L (22-29); Chloride 104 mmol/L (98-107); Estimated GFR-MDRD Greater than 90; Globulin 3.1 g/dL (2.4-3.5); Glucose 84 mg/dL (70-105); Potassium 3.9 mmol/L (3.5-5.1); Protein, Total 6.8 g/dL (6.0-8.3); Sodium 134 mmol/L (136-145)
--- NOTE | 2018-10-28 07:43 | SS ---
DATE OF ADMISSION: 10/27/2018 DATE OF DISCHARGE: 10/27/2018 LABOR AND DELIVERY TRIAGE NOTE REGULAR PHYSICIAN: Elmer Rouse MD EVALUATING PHYSICIAN: Shubham Jimenez MD CHIEF COMPLAINT: Nausea, diarrhea, and cramping at home. HISTORY OF PRESENT ILLNESS: Ms. Alexis is a 23-year-old G1, P0 with an estimated date of confinement of 11/19/2018, who presents complaining of a 24-hour history of intermittent nausea with 2 episodes of vomiting this afternoon and 3 to 4 episodes of diarrhea during the day. She denies vaginal bleeding or ruptured membranes. Her care has been with Dr. Rouse and it has been reportedly uncomplicated. PAST MEDICAL HISTORY: Includes reflux. PAST SURGICAL HISTORY: Gastric sleeve procedure. CURRENT MEDICATIONS: vitamins. ALLERGIES: 1. SULFA. 2. MORPHINE. 3. DILAUDID. 4. PHENERGAN. SOCIAL HISTORY: Denies tobacco, alcohol or drug use. FAMILY HISTORY: Unremarkable. REVIEW OF SYSTEMS: Denies fever, chills, vaginal bleeding, ruptured membranes or decreased movement. Positive for nausea, vomiting and diarrhea. PHYSICAL EXAMINATION: VITAL SIGNS: Stable and she is afebrile in triage. GENERAL: She is well appearing, in no acute distress. ABDOMEN: Soft, nontender, and gravid. PELVIC: heart rate tracing is stable. No regular contractions are seen. LABORATORY DATA: White count 8.9, hemoglobin and hematocrit 10.9 and 31.7 respectively. Platelet count 313,000. Chemistries; sodium 134, potassium 3.9, glucose 84, and creatinine 0.53. The patient was given 1 L of fluid bolus. She had no vomiting or diarrhea while she was here in Labor and Delivery. ASSESSMENT: 1. A 37-week intrauterine . 2. Nausea and diarrhea now resolved, laboratories are normal. PLAN: The patient will be dismissed to home. She was given a prescription for Zofran 4 mg ODT #15 to be used on a p.r.n. basis at home should her nausea return. She was told to use Gatorade and a bland diet for the next 24 to 36 hours and to return should her symptoms recur. Dr. Rouse was notified of this visit. Job ID: [id number]
== END 2018-10-27 23:36 | disposition home or self-care (01) ==
LOC: L&D/OP 20:04
PROVIDERS: ATTEND Obstetrics & Gynecology
DX: O21.2 Late vomiting of pregnancy (principal); O99.843 Bariatric surgery status complicating pregnancy, third trimester; O99.89 Other specified diseases and conditions complicating pregnancy, childbirth and the puerperium; R19.7 Diarrhea, unspecified; K21.9 Gastro-esophageal reflux disease without esophagitis; Z3A.37 37 weeks gestation of pregnancy; Z79.899 Other long term (current) drug therapy; Z88.2 Allergy status to sulfonamides; Z88.5 Allergy status to narcotic agent; Z88.8 Allergy status to other drugs, medicaments and biological substances
CPT/HCPCS: 80053; 81003; 85025; 96360; 96361; 96375; 99283; J2405

== ENCOUNTER 2018-11-11 05:15 | Inpatient (IN) | payer OTHER ==
[2018-11-11] MEDS ORDERED: HYDROcodone/Acetaminophen 5/325 mg Tablet PO PRN ×2 (05:48)
[2018-11-11] MEDS ORDERED: Ibuprofen 800 MG TAB PO PRN (05:48)
[2018-11-11] MEDS ORDERED: Acetaminophen 500 MG TAB PO PRN (05:48)
[2018-11-11] MEDS ORDERED: NS w/ Oxytocin 10 units 500 ML IV SCH (05:48)
[2018-11-11] MEDS ORDERED: Ondansetron PF 4 MG/2 ML Vial IVP PRN ×3 (05:48→13:49)
[2018-11-11] MEDS ORDERED: Diphenoxylate HCl/Atropine Tablet PO PRN ×2 (05:48)
[2018-11-11] MEDS ORDERED: Lidocaine 1% (PF) 30 ML VIAL SC PRN (05:48)
[2018-11-11] MEDS ORDERED: NS / Oxytocin 40 units/1000ml 1,000 ML IV PRN (05:48)
[2018-11-11] MEDS ORDERED: Misoprostol 200 MCG TAB PR PRN (05:48)
[2018-11-11] MEDS ORDERED: Butorphanol Tartrate 1 MG/ML VIAL SLOW IVP PRN (05:48)
[2018-11-11] MEDS ORDERED: Docusate 100 MG CAP PO PRN (05:48)
[2018-11-11 05:58] VITALS: BMI 36.8
[2018-11-11 06:27] LABS: Hemoglobin 10.8 g/dL (12.0-16.0); Mean Corpuscular HGB CONC 35.2 g/dL (32.0-36.0); Mean Corpuscular Hemoglobin 28.8 pg (27.0-31.0); Mean Corpuscular Volume 81.7 fL (78.0-98.0); Mean Platelet Volume 7.3 fL (7.4-10.4); Platelet Count 292 thou/uL (130-400); RBC Distribution Width 13.1 % (11.5-14.5); Red Blood Cell (RBC) Count 3.74 mill/uL (4.20-5.40); White Blood Cell (WBC) Count 8.8 thou/uL (4.8-10.8)
[2018-11-11] MEDS: Lactated Ringer's 1,000 ML IV SCH ×3 (06:31→12:51)
[2018-11-11 07:12] LABS: HBSAg Index 0.21 S/CO (0-0.99); Hep B Surf Ag Non-Reactive S/CO (NonReactive)
[2018-11-11 07:13] LABS: Syphilis Antibody Nonreactive (Nonreactive); Syphilis Antibody Index 0.07 S/CO (<1.00 Non-Reactive)
[2018-11-11] MEDS ORDERED: Fentanyl 4 mcg/Bup 0.1% Cadd 100 ML ONE (07:54)
[2018-11-11] MEDS ORDERED: Lidocaine 1.5%/Epinephrine 1:200,000 5 ML AMPUL IJ ONE (08:27)
[2018-11-11] MEDS ORDERED: Lactated Ringer's 500 ML IV PRN (09:01)
[2018-11-11] MEDS ORDERED: diphenhydrAMINE 50 MG/ML VIAL IVP PRN (09:01)
[2018-11-11] MEDS ORDERED: Eucerin (Mineral Oil/Petrolatum,White) 30 gm Jar TOP PRN (09:01)
[2018-11-11] MEDS ORDERED: Acetaminophen 325 MG TAB PO PRN (09:01)
[2018-11-11] MEDS ORDERED: Naloxone HCl 0.4 mg/ml Vial IVP PRN ×2 (09:01)
[2018-11-11] MEDS ORDERED: ePHEDrine/0.9% NaCl/PF SYRINGE 50 mg/10 ml SLOW IVP PRN (09:01)
[2018-11-11] MEDS ORDERED: Fentanyl 4 mcg/Bupivacaine 0.1% Cassette 100 ML EPIDURAL SCH (09:15)
[2018-11-11] MEDS ORDERED: Communication Order-Pharmacy FS SCH (09:15)
[2018-11-11] MEDS ORDERED: Adacel (T-DAP) 0.5 ML SYRINGE IM ONE (13:49)
[2018-11-11] MEDS ORDERED: Lanolin Ointment 7 GM TUBE TOP PRN (13:49)
[2018-11-11] MEDS ORDERED: Bisacodyl 10 MG SUPP PR PRN (13:49)
[2018-11-11] MEDS ORDERED: Zolpidem Tartrate 5 MG TAB PO PRN (13:49)
[2018-11-11] MEDS ORDERED: Preparation H Ointment 28 GM TUBE PR PRN (13:49)
[2018-11-11] MEDS ORDERED: Milk Of Magnesia 30 ML UDCUP PO PRN (13:49)
[2018-11-11] MEDS ORDERED: Misoprostol 200 MCG TAB VAG PRN (13:49)
[2018-11-11] MEDS ORDERED: Benzocaine/Menthol 20-0.5% 60 ML CAN TOP PRN (13:49)
[2018-11-11] MEDS ORDERED: diphenhydrAMINE 25 MG CAP PO PRN (13:49)
[2018-11-11] MEDS ORDERED: NS / Oxytocin 40 units/1000ml 1,000 ML IV SCH (14:00)
[2018-11-11] MEDS ORDERED: Acetaminophen/Codeine 30-300mg Tablet PO PRN (16:45)
[2018-11-11] MEDS: Ibuprofen 800 MG TAB PO SCH ×2 (16:50→20:30)
[2018-11-11] MEDS: Ferrous Sulfate 325 MG TAB PO SCH (16:50)
[2018-11-11] MEDS: Docusate Calcium (SURFAK) 240 MG CAP PO SCH (20:31)
[2018-11-11] MEDS ORDERED: Bupivacaine/Epinephrine 0.25% 30 ML VIAL ONE (23:00)
[2018-11-12] MEDS: Ibuprofen 800 MG TAB PO SCH ×3 (05:09→22:11)
[2018-11-12 06:25] LABS: Hemoglobin 9.9 g/dL (12.0-16.0); Mean Corpuscular HGB CONC 32.9 g/dL (32.0-36.0); Mean Corpuscular Hemoglobin 27.6 pg (27.0-31.0); Mean Corpuscular Volume 83.8 fL (78.0-98.0); Mean Platelet Volume 7.2 fL (7.4-10.4); Platelet Count 249 thou/uL (130-400); RBC Distribution Width 13.1 % (11.5-14.5); Red Blood Cell (RBC) Count 3.59 mill/uL (4.20-5.40); White Blood Cell (WBC) Count 9.3 thou/uL (4.8-10.8)
[2018-11-12] MEDS: Ferrous Sulfate 325 MG TAB PO SCH ×2 (09:20→18:28)
[2018-11-12] MEDS: Docusate Calcium (SURFAK) 240 MG CAP PO SCH ×2 (09:20→21:54)
[2018-11-12] MEDS: Prenatal Vitamin 1 TAB PO SCH (09:20)
[2018-11-13] MEDS: Ibuprofen 800 MG TAB PO SCH (06:06)
[2018-11-13 08:42] VITALS: BP 113/72; TEMP 98.4
[2018-11-13] MEDS: Docusate Calcium (SURFAK) 240 MG CAP PO SCH (09:33)
[2018-11-13] MEDS: Prenatal Vitamin 1 TAB PO SCH (09:33)
[2018-11-13] MEDS: Ferrous Sulfate 325 MG TAB PO SCH (09:33)
== END 2018-11-13 16:50 | disposition home or self-care (01) | DRG 807 ==
LOC: L&D 05:15 → 3SW 16:07
PROVIDERS: ADMIT Obstetrics & Gynecology; ATTEND Obstetrics & Gynecology
PROC: 10907ZC Drainage of Amniotic Fluid, Therapeutic from Products of Conception, Via Natural or Artificial Opening (ICD-10-PCS; principal; 2018-11-11)
PROC: 10E0XZZ Delivery of Products of Conception, External Approach (ICD-10-PCS; 2018-11-11)
PROC: 3E033VJ Introduction of Other Hormone into Peripheral Vein, Percutaneous Approach (ICD-10-PCS; 2018-11-11)
PROC: 0UQMXZZ Repair Vulva, External Approach (ICD-10-PCS; 2018-11-11)
DX: O71.82 Other specified trauma to perineum and vulva (principal); Z37.0 Single live birth; Z3A.39 39 weeks gestation of pregnancy
CPT/HCPCS: 36415; 51702; 85027; 86780; 86850; 86900; 86901; 87340; J2001; J3490

== ENCOUNTER 2021-07-22 13:38 | Outpatient (CLI) | payer OTHER | END 2021-07-22 13:39 | disposition home or self-care (01) | LOC: RAD 13:38 | PROVIDERS: ATTEND Surgery | DX: K21.9 Gastro-esophageal reflux disease without esophagitis (principal); Z98.890 Other specified postprocedural states | CPT/HCPCS: 74220 ==